=== PATIENT | male | born 1975 | race Two or more races ===

== ENCOUNTER 2020-03-07 15:13 | Emergency (ER) | payer OTHER, SELFPAY ==
[2020-03-07 16:30] VITALS: BP 154/68; PULSE 73; RESP 18; TEMP 36.6; O2SAT 97; BMI 44.1
--- NOTE | 2020-03-07 17:38 | ED.EAR ---
HPI - Ear Problem General Chief complaint: Ear Problems Stated complaint: EAR PAIN Time Seen by Provider: 03/07/20 17:38 History of Present Illness HPI Narrative: Patient complains of mild cough x1 day, right ear pain 2 days and a runny nose times several days, the cough is mild and infrequent, no associated shortness of breath no sputum, no fever no chills Related Data Previous Rx's Medication Instructions Recorded albuterol sulfate [Ventolin HFA] 2 puff INHALATION Q4-6H PRN #6.7 g 03/07/20 cetirizine 10 mg PO DAILY PRN #14 cap 03/07/20 Allergies Allergy/AdvReac Type Severity Reaction Status Date / Time No Known Allergies Allergy Verified 03/07/20 16:34 [No Known Allergies*] Review of Systems Review of Systems: Review of systems is positive for right ear pain, runny nose and mild cough There is no fever no chills no dizziness no confusion no weakness, there is no sore throat there is no chest pain, shortness of breath or sputum production There is no abdominal pain nausea vomiting or diarrhea There is no rash There is no leg swelling or calf pain There is no headache, no urinary symptom Yes all other systems are reviewed and are negative PMFSH Past Medical History Source: nursing notes reviewed Medical History (Updated 03/08/20 @ 00:00 by Background Daemon) HTN (hypertension) Social History Social History Advance Directives: No Advance Directives Information Provided: Yes Physical Exam Vital Signs: Vital Signs: Last Vital Signs Temp 97.8 F 03/07/20 16:30 Pulse 73 03/07/20 16:30 Resp 18 03/07/20 16:30 BP 154/68 H 03/07/20 16:30 Pulse Ox 97 03/07/20 16:30 Body Mass Index 44.1 The patient is calmed comfortable A&O x3 no acute distress the The ear exam both ears had normal tympanic membrane normal canals no redness to the tympanic membrane no narrowing of canal no evidence of ear infection The pharynx is clear with no redness no tonsillar swelling no exudate no impairment of swallowing, uvula is midline no trismus, voice is normal The neck is supple without lymphadenopathy The chest is clear with full equal symmetrical breath sounds The heart rate and rhythm regular no murmur Extremities no edema no rash Neuro no focal deficit Course Course Course Narrative: Year was normal no a tightness media patient is comfortable and is discharged home He requested an albuterol refill as he is out but has no shortness of breath at this moment Discharge Plan Discharge Clinical Impression: Acute viral syndrome Patient Disposition: Home, Self-Care Additional Instructions: The right ear looked normal, the lungs were clear, vital signs were okay We did a COVID swab and the results will be back in 2-3 days The runny nose and mild cough can certainly be COVID symptoms so where mass can be careful around other people Return any time any worse condition or any concerns Prescriptions: New albuterol sulfate [Ventolin HFA] 90 mcg/actuation HFA aerosol inhaler 2 puff inhalation Q4-6H PRN (Reason: shortness of breath or wheezing) Qty: 6.7 RF: 0 cetirizine 10 mg capsule 10 mg PO DAILY PRN (Reason: nasal symptoms) Qty: 14 RF: 0 Stand Alone Forms: Work/School Release Interventions: ED Discharge Assessment Last Done: 03/07/20 18:38 Discharge Date/Time: 03/07/20 18:40
== END 2020-03-07 18:40 | disposition home or self-care (01) ==
PROVIDERS: Physician Assistant Medical; Emergency Provider Internal Medicine
DX: B34.9 Viral infection, unspecified (principal); R05 Cough; H92.03 Otalgia, bilateral; Z20.828 Contact with and (suspected) exposure to other viral communicable diseases; Z79.899 Other long term (current) drug therapy
CPT/HCPCS: 99283; U0003

== ENCOUNTER 2020-05-10 10:26 | Outpatient (REF) | payer OTHER, SELFPAY | END 2020-05-10 10:27 | disposition home or self-care (01) | LOC: HO.LAB 10:26 | PROVIDERS: Visit Provider Internal Medicine | DX: Z20.822 Contact with and (suspected) exposure to COVID-19 (principal) | CPT/HCPCS: 36415; C9803; U0003 ==

== ENCOUNTER 2020-09-24 15:36 | Emergency (ER) | payer MEDICAID, SELFPAY ==
[2020-09-24 16:20] VITALS: BP 156/89; PULSE 86; RESP 16; TEMP 37.1; O2SAT 97; BMI 44.1
--- NOTE | 2020-09-24 16:22 | ED_ITS ---
HPI - Skin/Abscess/Foreign Bdy General Chief complaint: Skin/Abscess/Foreign Body Stated complaint: abscess Time Seen by Provider: 09/24/20 16:12 Source: patient and family ( at bedside) Mode of arrival: ambulatory Limitations: language barrier (Gabonese-speaking) History of Present Illness HPI narrative: 45-year-old male presenting to the ED with complaints of red full/painful lump to the right upper back for the past 3-4 days after he tried to squeeze a pimple that he had there. Denies any other symptoms or complaints at this time. MD complaint: abscess/boil Onset (ago): day(s) (3-4 days worse today) Location: back Severity: moderate Quality: aching Pain Consistency: constant Relieving factors: none Exacerbating factors: none Associated symptoms: denies other symptoms Treatments prior to arrival: attempted to drain pus at home Related Data Previous Rx's Medication Instructions Recorded albuterol sulfate [Ventolin HFA] 2 puff INHALATION Q4-6H PRN #6.7 g 03/07/20 cetirizine 10 mg PO DAILY PRN #14 cap 03/07/20 acetaminophen [Tylenol Extra 1,000 mg PO QID PRN #14 tab 09/24/20 Strength] cephalexin 500 mg PO BID 10 Days #20 cap 09/24/20 doxycycline monohydrate 100 mg PO BID 10 Days #20 cap 09/24/20 ibuprofen 800 mg PO Q8H PRN #14 tab 09/24/20 oxycodone 5 mg PO BID PRN #10 tab 09/24/20 Allergies Allergy/AdvReac Type Severity Reaction Status Date / Time No Known Allergies Allergy Verified 03/07/20 16:34 [No Known Allergies*] Review of Systems Review of Systems: Constitutional : No Fever, No Chills, Cardiovascular : No Chest Pain, No SOB Respiratory : No Dyspnea Gastrointestinal : No abdominal pain Musculoskeletal : No Joint Swelling Skin : positive surrounding erythema, no skin laceration, No Foreign bodies, No rash Neuro : No Weakness, No Numbness/tingling Psych : No SI/HI/thoughts of self injury Yes all other systems are reviewed and are negative PMFSH Past Medical History Attestation statement: The following information was validated with the patient. Medical History Anxiety HTN (hypertension) Social History Social History Advance Directives: No Advance Directives Information Provided: No Physical Exam 2 Vital Signs: Vital Signs: vital signs have been reviewed as normal and appeared to be correct. Blood pressure normal. Heart rate normal. Respiration rate normal. Temperature normal. Oxygen saturation normal. Appearance: Alert. Oriented X3. No acute distress. Head: Normal external exam. Normocephalic. Atraumatic. Eyes: PERRLA. EOMI. Conjunctiva and sclera normal. Eyelids normal. ENT: Pharynx normal. Uvula midline. Moist mucous membranes. Neck: Normal inspection. Neck supple. FROM. No adenopathy. Thyroid Normal. No meningeal signs. No neck mass noted. CVS: Normal heart rate and rhythm. Heart sound normal. Pulses normal throughout. No murmurs/rales/gallops. Respiratory: No respiratory distress. Painless inspiration. Breath sounds normal. No wheezes/rales/rhonchi noted. Chest nontender. No accessory muscle usage noted or decreased air movement noted. Back: Full range of motion noted. No rashes/lesion/induration/fluctuance or signs of infection noted. Skin: To right upper back patient has moderate erythema with induration. No streaking or fluctuance noted. No foreign bodies noted. No drainage noted. The rest of the Skin is warm and dry. Normal skin color. Normal skin turgor. No rashes/lesions/lacerations noted. Extremities: No lower extremity edema. Extremities exhibit normal range of motion. Extremities nontender. Neuro: Oriented X 3. No motor deficit. No sensory deficit. Reflexes normal. Normal steady gait. No focal neuro deficits noted. Course Course Course Narrative: Patient with a cellulitic infection to right upper back not consistent with an abscess at this time. Will DC home with antibiotics and symptomatic treatment instructions to place warm compresses and to follow up if any new or worsening symptoms. Patient understands agrees with this plan. MDM - Skin/Abscess/Foreign Bdy Medical Records Attestation: I reviewed the patient's medical records. Discharge Plan Discharge Clinical Impression: Cellulitis Patient Disposition: Home, Self-Care Instructions: Cellulitis (ED) Prescriptions: New ibuprofen 800 mg tablet 800 mg PO Q8H PRN (Reason: pain) Qty: 14 RF: 0 acetaminophen [Tylenol Extra Strength] 500 mg tablet 1,000 mg PO QID PRN (Reason: fever or pain) Qty: 14 RF: 0 doxycycline monohydrate 100 mg capsule 100 mg PO BID 10 Days Qty: 20 RF: 0 cephalexin 500 mg capsule 500 mg PO BID 10 Days Qty: 20 RF: 0 oxycodone 5 mg tablet 5 mg PO BID PRN (Reason: pain) Qty: 10 RF: 0 No Action albuterol sulfate [Ventolin HFA] 90 mcg/actuation HFA aerosol inhaler 2 puff inhalation Q4-6H PRN (Reason: shortness of breath or wheezing) Qty: 6.7 RF: 0 cetirizine 10 mg capsule 10 mg PO DAILY PRN (Reason: nasal symptoms) Qty: 14 RF: 0 Referrals: [facility] [Primary Care Provider] - 2 days Print Language: Gabonese
== END 2020-09-24 17:07 | disposition home or self-care (01) ==
PROVIDERS: Emergency Provider Emergency Medicine
DX: L03.312 Cellulitis of back [any part except buttock and flank] (principal); M54.5 Low back pain; I10 Essential (primary) hypertension; Z79.899 Other long term (current) drug therapy
CPT/HCPCS: 99283

== ENCOUNTER 2021-01-07 10:52 | Emergency (ER) | payer MEDICAID, SELFPAY ==
--- NOTE | ~2021-01-07 | XR_ITS ---
EXAMINATION: XR CHEST CLINICAL INFORMATION: Shortness of breath, cough, Covid COMPARISON: Chest x-ray on 10/30/2019 TECHNIQUE: Frontal view of the chest was obtained. FINDINGS: Cardiomediastinal silhouette is accentuated by low lung volumes. There are bilateral patchy interstitial opacities. No pleural effusions. Mild bronchial wall thickening. XR/XR chest 1V IMPRESSION: Findings consistent with the clinical history of Covid 19 pneumonia.
[2021-01-07 11:27] VITALS: BP 178/89; PULSE 78; RESP 18; TEMP 36.9; O2SAT 94; BMI 33.2
--- NOTE | 2021-01-07 11:56 | ED.URI ---
HPI - URI/Sore Throat General Chief Complaint: Upper Respiratory Symptoms Stated Complaint: COVID + SOB Time Seen by Provider: 01/07/21 11:33 Source: patient Mode of arrival: ambulatory Limitations: no limitations History of Present Illness HPI Narrative: This is a 45-year-old obese male that presents to the emergency department with a dry nonproductive cough and shortness of breath for 1 week. He states that his daughter tested positive 8 days ago, and he tested positive with an at-home rapid test 7 days ago. He reports increase shortness of breath, particularly with exertion. He also states that has had a fever at home ranging anywhere between 101 degrees F and 102 degrees F. He was last febrile this morning. He denies chest pain, abdominal pain, changes in bowel habits. He is nonsmoker, and past medical history significant for hypertension. He denies past history of asthma and/or COPD. Patient is able to eat and drink, with no complaints. MD elicited complaint: cough (Nonproductive) and other (Shortness of breath on exertion) Onset (ago): day(s) (7) Consistency: intermittent Severity: mild Able to tolerate fluids by mouth: Yes Exacerbating factors: nothing Relieving factors: nothing Context: sick contacts (Daughter was positive for COVID 8 days ago) Associated symptoms: fever, cough and shortness of breath Treatments prior to arrival: none Related Data Previous Rx's Medication Instructions Recorded albuterol sulfate 90 mcg/actuation 2 puff INHALATION Q4-6H PRN #6.7 g 03/07/20 aerosol inhaler (Ventolin HFA) cetirizine 10 mg capsule 10 mg PO DAILY PRN #14 cap 03/07/20 acetaminophen 500 mg tablet 1,000 mg PO QID PRN #14 tab 09/24/20 (Tylenol Extra Strength) cephalexin 500 mg capsule 500 mg PO BID 10 Days #20 cap 09/24/20 doxycycline monohydrate 100 mg 100 mg PO BID 10 Days #20 cap 09/24/20 capsule ibuprofen 800 mg tablet 800 mg PO Q8H PRN #14 tab 09/24/20 oxycodone 5 mg tablet 5 mg PO BID PRN #10 tab 09/24/20 azithromycin 250 mg tablet See Rx Instructions .ROUTE 01/07/21 (Zithromax Z-Antwan) .COMPLEX #6 tab prednisone 50 mg tablet 50 mg PO DAILY #5 tab 01/07/21 Allergies Allergy/AdvReac Type Severity Reaction Status Date / Time No Known Allergies Allergy Verified 03/07/20 16:34 [No Known Allergies*] Review of Systems Review of Systems: Constitutional: + Fever, No Chills ENT/Mouth: No sore throat, No Rhinorrhea, No Swallowing Difficulty Eyes: No Eye Pain, No Swelling, No Redness Cardiovascular: No Chest Pain, + SOB, No Orthopnea, No Edema Respiratory: + Cough, No Sputum, No Wheezing, + dyspnea Gastrointestinal: No Nausea, No Vomiting, No Diarrhea, No abdominal Pain, No Hematochezia, No Melena Genitourinary: No Dysuria, No Urinary Frequency, No Hematuria Musculoskeletal: No joint pain, No Myalgias Skin: No Skin Lesions, No rash Neuro: No Weakness, No Numbness, No Dizziness, No Headache Psych: No Anxiety/Panic, No Depression Heme/Lymph: No Bruising, No Lymphadenopathy Endocrine: No Polyuria, No Polydipsia PMFSH Past Medical History Attestation statement: The following information was validated with the patient. Source: old records reviewed Medical History Anxiety HTN (hypertension) Social History Social History Advance Directives: Yes Advance Directives Information Provided: Yes Advance Directives on File: No Physical Exam Vital Signs: Vital Signs: Last Vital Signs Temp 98.5 F 01/07/21 11:27 Pulse 78 01/07/21 11:27 Resp 18 01/07/21 11:27 BP 178/89 H 01/07/21 11:27 Pulse Ox 94 01/07/21 12:00 Body Mass Index 33.2 Appearance: Alert. Oriented X3. No acute distress. Patient is speaking in full sentences, no use of accessory muscles for breathing. Eyes: Pupils equal, round and reactive to light. ENT: Pharynx normal. Neck: Normal inspection. Neck supple. CVS: Normal heart rate and rhythm. Pulses normal. Respiratory: No respiratory distress. + Diminished breath sounds to bilateral lower lobes. No other adventitious lung sounds noted. Abdomen: Soft and nontender. +BS x4 Skin: Skin warm and dry. Normal skin color. Normal skin turgor. No rashes. Extremities: No lower extremity edema. Neuro: Oriented X 3. No motor deficit. No sensory deficit. Course Course Course Narrative: This is a 45-year-old male who presents from home with complaints of shortness of breath, nonproductive cough for 7 days. He recently tested positive for COVID with an at-home rapid test 7 days ago. His daughter was sick with COVID prior to him testing positive. He reports fevers at home ranging between 101 degrees F 2 102 degrees F. he states that his shortness of breath is only upon exertion. Here in the emergency department he has been saturating 94% on room air, he has no current signs of distress, he is speaking in full sentences and appears comfortable at the bedside. Only past known medical history of hypertension. He denies asthma and/or COPD. He is nonsmoker. Bilateral diminished lung sounds noted. No calf tenderness, or lower extremity edema low concern for PE. A chest x-ray has been ordered based upon findings will decide whether not to treat for a community acquired pneumonia. An ambulatory oxygen saturation has also been ordered. Reevaluation(s) Reevaluation #1: Discussed chest x-ray results with patient. He has been advised to return to the emergency department if he experiences any new, or worsening symptoms. Also recommended for him to get in at home pulse oximeter for him to check his oxygen saturations. Here at the hospital he is saturating 94% on room air. He was also ambulated around the room, and he maintained his oxygen saturation at 94% & he had no respiratory distress. At home if he were to monitor his oxygen saturation, and it dropped below 90%, it is important for him to seek medical attention. He is aware of this plan, he has been educated. He will be sent home on antibiotics as well as prednisone. Time: 12:28 MDM - URI/Sore Throat Imaging Data Chest x-ray: Attestation: I personally reviewed and interpreted this imaging study as follows: Radiologist's impression: FINDINGS: Cardiomediastinal silhouette is accentuated by low lung volumes. There are bilateral patchy interstitial opacities. No pleural effusions. Mild bronchial wall thickening. XR/XR chest 1V IMPRESSION: Findings consistent with the clinical history of Covid 19 pneumonia. ? Discharge Plan Discharge Clinical Impression: Upper respiratory infection, COVID-19 Patient Disposition: Home, Self-Care Instructions: COVID-19 (Coronavirus Disease 2019) (ED) Additional Instructions: You were found to be COVID-19 POSITIVE today. Your chest x-ray COVID-19 pneumonia but your oxygen levels were normal. Rest. Drink plenty of fluids. Do not go out in public for the next 10 days. Take over the counter cold/flu medications as needed for your symptoms. Take Tylenol and/or Motrin as needed for fevers and body aches. Follow up with your doctor this week. Take all your antibiotics as prescribed, it is important you do not miss a dose, and take them to their entirety It is highly recommended for you to get a pulse oximeter at [facility], [facility] or any other [place] to monitor your oxygen saturation. Here in the emergency department he was saturating at 94% on room air, it is important that this is not go below 90%. If you shortness of breath worsens , if you develop difficulty breathing or any other concerning symptom come back to the ER for further evaluation. If you develop new or worsening symptoms call 911 or come back to the ER for further evaluation. Prescriptions: New prednisone 50 mg tablet 50 mg PO DAILY Qty: 5 RF: 0 azithromycin [Zithromax Z-Antwan] 250 mg tablet See Rx Instructions .ROUTE .COMPLEX Qty: 6 RF: 0 No Action albuterol sulfate [Ventolin HFA] 90 mcg/actuation HFA aerosol inhaler 2 puff inhalation Q4-6H PRN (Reason: shortness of breath or wheezing) Qty: 6.7 RF: 0 cetirizine 10 mg capsule 10 mg PO DAILY PRN (Reason: nasal symptoms) Qty: 14 RF: 0 ibuprofen 800 mg tablet 800 mg PO Q8H PRN (Reason: pain) Qty: 14 RF: 0 acetaminophen [Tylenol Extra Strength] 500 mg tablet 1,000 mg PO QID PRN (Reason: fever or pain) Qty: 14 RF: 0 doxycycline monohydrate 100 mg capsule 100 mg PO BID 10 Days Qty: 20 RF: 0 cephalexin 500 mg capsule 500 mg PO BID 10 Days Qty: 20 RF: 0 oxycodone 5 mg tablet 5 mg PO BID PRN (Reason: pain) Qty: 10 RF: 0
[2021-01-07 12:00] VITALS: O2SAT 94
[2021-01-07 12:38] LABS: COVID-19 Test Positive (Negative)
== END 2021-01-07 12:57 | disposition home or self-care (01) ==
PROVIDERS: Physician Assistant; Emergency Provider Emergency Medicine
DX: U07.1 COVID-19 (principal); J06.9 Acute upper respiratory infection, unspecified; Z79.899 Other long term (current) drug therapy
CPT/HCPCS: 36415; 71045; 87635; 99283

== ENCOUNTER → 2021-05-04 13:04 | Outpatient (BNVA) | payer MEDICAID, SELFPAY | PROVIDERS: PCP Internal Medicine; Referring Provider Internal Medicine; Visit Provider Internal Medicine | DX: I10 Essential (primary) hypertension (principal); E66.01 Morbid (severe) obesity due to excess calories; G47.33 Obstructive sleep apnea (adult) (pediatric); Z99.89 Dependence on other enabling machines and devices; Z68.41 Body mass index [BMI] 40.0-44.9, adult | CPT/HCPCS: 93005 ==

== ENCOUNTER → 2021-06-16 08:18 | Outpatient (REF) | payer MEDICAID, SELFPAY ==
--- NOTE | 2021-06-16 08:22 | CA_ITS ---
Transthoracic Echocardiogram Patient (Last, First, Middle): Reji Corley, Gender: Male Date of : 1975 Age: 46 Procedure Date: 06/16/2021 Procedure Type: Transthoracic Echocardiogram Location: OP Height: 172.72 cm Weight: 134.72 kg BSA: 2.42 m2 Heart Rate: bpm BP: 142 / 80 mmHg Lcpc: DEIRDRE Referring MD: Keo Salter MD Symptoms: I10 - Essential (primary) hypertension Study Quality: Fair ECG Rhythm: Sinus Conclusions: - The left ventricular systolic function is normal. The calculated ejection fraction is 63% by biplane method. - There is moderately increased left ventricular wall thickness. - No obvious valvular pathology seen on this study. Findings Left Ventricle Normal left ventricular cavity size. There is moderately increased left ventricular wall thickness. The left ventricular systolic function is normal. The calculated ejection fraction is 63% by biplane method. There is no evidence of regional wall motion abnormalities. Diastolic function is normal for age. Right Ventricle Normal right ventricular cavity size and systolic function. Atria Both atria are normal in size. Aortic Valve There is a normal trileaflet aortic valve. There is no aortic valve stenosis. There is no aortic valve regurgitation. Mitral Valve The mitral valve appears normal. There is mild mitral annular calcification. There is trace mitral valve regurgitation. There is no mitral valve stenosis. Pulmonic Valve The pulmonic valve was not well visualized. Tricuspid Valve There is trace tricuspid valve regurgitation. The pulmonary artery systolic pressure is normal. Great Vessels The aortic annulus, sinuses of valsalva, asc aorta, and aortic arch are normal in size. Venous The inferior vena cava is normal in size and collapses greater than 50% with inspiration. Pericardium/Pleural There is no evidence of pericardial effusion. Prior Study Comparison No significant change compared to prior study dated: 11/10/2019. Recommendations, Care & Conclusions No obvious valvular pathology seen on this study. Measurements 2D Linear Measurements IVSd: 1.30 0.6-0.9/0.6-1.0 cm LVIDd: 4.39 3.9-5.3/4.2-5.9 cm LVIDd Index: 1.81 2.4-3.2/2.2-3.1 cm/m2 LVIDs: 2.28 2.0-3.6 cm LVPWd: 1.36 0.7-1.1 cm Ao Root: 3.60 2.1-3.5 cm LA Diam: 4.70 2.7-3.8/3.0-4.0 cm LAIDs Index: 1.94 1.5-2.3 cm/m2 LV Mass: 276.43 67-162/88-224 g LV Mass Index: 114.23 43-95/49-115 g/m2 LVOT Diam: 2.20 3.0+(-)1.3 cm 2D Systolic Function EF 4C: 64.60 >55% EF 2C: 59.80 >55% EF BiP: 62.80 >55% Mitral Valve MV Pk E: 0.96 MV PK A: 0.79 MV Decel Time: 250.00 E/A: 1.20 E'Lateral: 10.90 E'Medial: 8.27 E/E' Med: 11.60 E/E' Lat: 8.80 PHT: 73.00 MVA PHT: 3.01 Decel [place]: 3.85 Aortic Valve AoV Pk [place]: 1.69 AoV Mn [place]: 1.19 AoV VTI: 0.34 AoV Pk Grad: 11.00 Aov Mn Grad: 6.00 IRIS Cont.VTI: 3.49 LVOT LVOT Pk [place]: 1.51 LVOT Mn [place]: 1.08 LVOT VTI: 0.31 LVOT Pk Grad: 9.00 LVOT Mn Grad: 5.00 LVOT Diam: 2.20 LVOT Area: 3.80 Diastolic Function MV Pk E: 0.96 MV Pk A: 0.79 E/A: 1.20 E'Medial: 8.27 E/E' Med: 11.60 E' Laterial: 10.90 E/E' Lat: 8.80 Right Ventricle TAPSE (mm): 23.90 TVS' [place]: 12.30 Tricuspid Valve TR Pk [place]: 1.48 TR Pk Grad: 9.00 RA Press: 8.00 RVSP: 17.00 Great Vessels Aorta Ao Root-2D: 3.60 2.0-3.7 cm Ao Asc: 3.30 2.1-3.4 cm Ao Arch: 3.00 Updated in Other Vendor System with Status of Final Keo Salter MD electronically signed on 06/18/2021 12:31:55 PM with status of Final
== END ==
LOC: HO.CARD 08:18
PROVIDERS: PCP Internal Medicine; Visit Provider Internal Medicine
DX: I10 Essential (primary) hypertension (principal)
CPT/HCPCS: 93306

== ENCOUNTER → 2021-06-20 14:54 | Outpatient (BNVA) | payer MEDICAID, SELFPAY | PROVIDERS: PCP Internal Medicine; Referring Provider Internal Medicine; Visit Provider Nurse Practitioner Family | DX: G47.33 Obstructive sleep apnea (adult) (pediatric) (principal); E66.01 Morbid (severe) obesity due to excess calories; Z68.42 Body mass index [BMI] 45.0-49.9, adult; I10 Essential (primary) hypertension; Z99.89 Dependence on other enabling machines and devices | CPT/HCPCS: 99202 ==

== ENCOUNTER → 2021-06-21 13:19 | Outpatient (BNVA) | payer MEDICAID, SELFPAY | PROVIDERS: PCP Internal Medicine; Referring Provider Internal Medicine; Visit Provider Nurse Practitioner Family | DX: I51.7 Cardiomegaly (principal); I10 Essential (primary) hypertension; E66.01 Morbid (severe) obesity due to excess calories; G47.33 Obstructive sleep apnea (adult) (pediatric); Z99.89 Dependence on other enabling machines and devices; Z68.42 Body mass index [BMI] 45.0-49.9, adult | CPT/HCPCS: 99212 ==

== ENCOUNTER → 2021-07-04 09:48 | Outpatient (BNVA) | payer MEDICAID, SELFPAY | PROVIDERS: PCP Internal Medicine; Referring Provider Internal Medicine; Visit Provider Nurse Practitioner Family | DX: Z13.89 Encounter for screening for other disorder (principal) ==

== ENCOUNTER 2021-09-29 12:55 | Emergency (ER) | payer OTHER, MEDICAID, SELFPAY ==
[2021-09-29 13:04] VITALS: BP 153/82; PULSE 77; RESP 18; TEMP 36.9; O2SAT 97; BMI 44.1
[2021-09-29] MEDS: Ketorolac Tromethamine 30 MG/ML VIAL IM (14:50)
--- NOTE | 2021-09-29 15:57 | ED.BACK ---
HPI - Back Pain/Injury General Chief Complaint: Back Pain/Injury Stated Complaint: lower back inj with tire at work Time Seen by Provider: 09/29/21 14:30 Source: patient Mode of arrival: ambulatory Limitations: language barrier History of Present Illness HPI Narrative: 46-year-old male presents with right low back pain after lifting a heavy tire at work. Patient was removing a room from a very large and heavy tire, when he lifted the tire up and felt sudden back pain in his left lower back. It is now painful to straighten up. No radiation into his legs, no prior back surgery, no chronic back pain. No fever, no bilateral leg weakness, no saddle paresthesias, no bowel or bladder incontinence, no bladder retention, no history of IV drug use, no history of cancer. No numbness, syncope, abdominal pain, nausea, vomiting MD elicited complaint: back pain Pertinent past history: recent trauma Onset (ago): hour(s) (1) Timing: constant Severity: moderate Similar Symptoms Previously: No Quality: stabbing Location: right lower back Radiation: none Exacerbating factors: movement Context: while lifting Associated symptoms: denies other symptoms Related Data Home Medications Medication Instructions Recorded Confirmed buspirone 10 mg tablet 10 mg PO TID 05/04/21 06/21/21 lorazepam 0.5 mg tablet 0.5 mg PO DAILY PRN 05/04/21 06/21/21 Previous Rx's Medication Instructions Recorded metoprolol tartrate 50 mg tablet 50 mg PO BID #180 tabs 05/04/21 amlodipine 10 mg tablet 10 mg PO DAILY #90 tabs 06/21/21 valsartan 80 mg tablet 80 mg PO DAILY #30 tabs 07/04/21 cyclobenzaprine 5 mg tablet 5 mg PO TID 5 days #15 tabs 09/29/21 ketorolac 10 mg tablet 10 mg PO QID 5 days #20 tabs 09/29/21 Allergies Allergy/AdvReac Type Severity Reaction Status Date / Time No Known Allergies Allergy Verified 06/21/21 13:21 [No Known Allergies*] Review of Systems Constitutional: Constitutional: Denies body ache(s), Denies chills, Denies fatigue, Denies fever(s), Denies malaise and Denies weakness Eyes: Eyes: Denies blurry vision and Denies diplopia ENT: Denies neck pain Cardiovascular: Cardiovascular: Denies chest pain, Denies syncope, Denies leg edema, Denies lightheadedness, Denies Loss of Consciousness, Denies palpitations and Denies dyspnea Respiratory: Respiratory: Denies chest congestion, Denies cough and Denies dyspnea Gastrointestinal: Gastrointestinal: Denies abdominal pain, Denies hematochezia, Denies constipation, Denies diarrhea, Denies nausea and Denies vomiting Musculoskeletal: Musculoskeletal: Reports back pain, Denies muscle weakness, Denies neck pain and Denies radiating pain into limb Neurologic: Denies confusion, Denies syncope and Denies weakness Psychiatric: Psychiatric: Denies anxiety, Denies confusion and Denies depression Endocrine: Endocrine: Denies fatigue and Denies palpitations PMFSH Past Medical History Medical History Anxiety Essential hypertension HTN (hypertension) MADINA on CPAP Surgical History No pertinent past surgical history Family History Family History Father Heart disease Hypertension Mother No problems noted. Social History Social History Patient Tobacco Use Status: Never used Tobacco Advance Directives: No Advance Directives Information Provided: No Physical Exam Vital Signs: Vital Signs: Last Vital Signs Temp 98.4 F 09/29/21 13:04 Pulse 77 09/29/21 13:04 Resp 18 09/29/21 13:04 BP 153/82 H 09/29/21 13:04 Pulse Ox 97 09/29/21 13:04 O2 Del Method 09/29/21 13:04 BMI result Body Mass Index 44.1 Const: General: No confusion Nutritional Appearance: well nourished Orientation/consciousness: No confusion Limitations: no limitations Eyes: Conjunctivae: conjunctivae normal Pupils: Equal, round and reactive pupils present EOM: EOMs intact bilaterally Neck: Neck: Yes full ROM, Yes no lymphadenopathy and Yes supple Resp: Effort & Inspection: normal respiratory effort and able to speak in complete sentences Auscultation: clear to auscultation bilaterally, no crackles, no rales, no rhonchi and no wheezes Cardio: Rate: regular rate Rhythm: regular rhythm Heart sounds: S1 normal heart sound present and S2 normal heart sound present GI: Inspection: Yes normal to inspection Palpation (GI): Soft to palpation, nontender, no guarding and not rigid Percussion: Yes normal to percussion Auscultation: normal bowel sounds : General: Yes no CVA tenderness Back/Spine/Pelvis: Back: no CVA tenderness Cervical Spine: normal cervical lordosis, cervical ROM normal, No Cervical spine tenderness, No step off deformity and No cervical ROM abnormal Thoracic/Lumbar Spine: straight leg raise negative bilaterally, thoraco-lumbar spasm on the right, No thoracic spinal tenderness and No lumbar spinal tenderness Skin: General skin exam: no rashes or lesions noted Neuro: General: No confusion Cranial nerves: Yes Equal, round and reactive pupils present Extrem: General: Yes normal to inspection and Yes full ROM Psych: Appearance: grossly normal Affect: normal affect Attitude: cooperative Thought process: Normal thought process present Course Course Course Narrative: 46-year-old with right-sided low back pain after lifting a heavy tire at work just prior to arrival. On exam, patient has normal vitals, is well appearing, no red flag symptoms. Patient has no vertebral point tenderness, has intact bilateral lower extremity sensation, motor strength, pulses, DTRs. Patient is tender to help in his right lateral soft tissue of his low back muscle treated with ketorolac and Flexeril, send patient home on same. Counseled patient to follow-up with his primary care provider. Gave return precautions of fever, leg weakness, numbness or tingling in his groin, incontinent of bowel or bladder, urinary retention. Patient verbalized agreement and understanding of the plan Discharge Plan Discharge Clinical Impression: Acute lumbar myofascial strain Patient Disposition: Home, Self-Care Instructions: Acute Low Back Pain (ED), Lower Back Exercises (ED) Additional Instructions: please fill the prescriptions I sent to your pharmacy and take them as prescribed. Please do not take any ibuprofen containing products while you are taking the ketorolac. Please return to be seen if you have sudden leg weakness, if you have bowel or bladder incontinence, if you have numbness or tingling in your groin, if you have any other new or concerning symptoms por favor surta las recetas que le envi? a goff farmacia y t?melas seg?n lo recetado. No tome lois?n producto que contenga ibuprofeno mientras est? tomando ketorolaco. Vuelva a que lo atiendan si tiene debilidad repentina en las piernas, si tiene incontinencia intestinal o vesical, si tiene entumecimiento u hormigueo en la elva, si tiene otros s?ntomas nuevos o preocupantes. Prescriptions: New cyclobenzaprine 5 mg tablet 5 mg PO TID 5 Days Qty: 15 0RF ketorolac 10 mg tablet 10 mg PO QID 5 Days Qty: 20 0RF No Action valsartan 80 mg tablet 80 mg PO DAILY Qty: 30 5RF lorazepam 0.5 mg tablet 0.5 mg PO DAILY PRN buspirone 10 mg tablet 10 mg PO TID metoprolol tartrate 50 mg tablet 50 mg PO BID Qty: 180 3RF amlodipine 10 mg tablet 10 mg PO DAILY Qty: 90 1RF Stand Alone Forms: Work/School Release Interventions: ED Discharge Assessment Last Done: 09/29/21 14:56 Discharge Date/Time: 09/29/21 14:57 Print Language: Belarusian
== END 2021-09-29 14:57 | disposition home or self-care (01) ==
PROVIDERS: Emergency Provider Emergency Medicine; PCP Internal Medicine
DX: S39.012A Strain of muscle, fascia and tendon of lower back, initial encounter (principal); I10 Essential (primary) hypertension; G47.33 Obstructive sleep apnea (adult) (pediatric); Z99.89 Dependence on other enabling machines and devices; X50.0XXA Overexertion from strenuous movement or load, initial encounter; Y93.9 Activity, unspecified; Y92.9 Unspecified place or not applicable; Y99.0 Civilian activity done for income or pay
CPT/HCPCS: 96372; 99283; 99284; J1885

== ENCOUNTER → 2022-03-01 08:52 | Outpatient (BNVA) | payer MEDICAID, OTHER, SELFPAY | PROVIDERS: PCP Internal Medicine; Visit Provider Internal Medicine | DX: I10 Essential (primary) hypertension (principal); G47.33 Obstructive sleep apnea (adult) (pediatric); E66.01 Morbid (severe) obesity due to excess calories; Z99.89 Dependence on other enabling machines and devices; Z68.41 Body mass index [BMI] 40.0-44.9, adult | CPT/HCPCS: 99212 ==

== ENCOUNTER 2022-05-22 15:08 | Outpatient (REF) | payer MEDICAID, SELFPAY ==
--- NOTE | ~2022-05-22 | XR_ITS ---
EXAMINATION: XR LUMBOSACRAL SPINE CLINICAL INFORMATION: Low back pain. COMPARISON: None TECHNIQUE: Three views of the lumbosacral spine. FINDINGS: There is normal lumbar lordosis. The vertebral heights and alignment is normal. There is loss of L5-S1 disc height with mild ventral spondylosis at L5-S1 and T12-L1 disc levels. No aggressive lytic or sclerotic process seen. The SI joints are symmetrical and normal. The paravertebral soft tissues are normal. XR/XR lumbar spine 2-3V IMPRESSION: Mild degenerative disc changes L5-S1 and T12-L1 disc levels with mild ventral spondylosis. No aggressive lytic and sclerotic process seen.
== END 2022-05-22 15:09 | disposition home or self-care (01) ==
LOC: HO.XRAY 15:08
PROVIDERS: Visit Provider Registered Nurse
DX: M54.50 Low back pain, unspecified (principal); M79.604 Pain in right leg
CPT/HCPCS: 72100

== ENCOUNTER 2022-05-30 14:47 | Outpatient (RCR) | payer MEDICAID, SELFPAY ==
[2022-05-30 15:02] VITALS: BP 169/82
--- NOTE | 2022-05-31 13:37 | MHC.PT.EP ---
[facility] [place] [facility] [place] [facility] [place] [facility] [address] Aaron Alegria [address] [phone] F: [phone] F: [phone] F: [phone] F: [phone] Physical Therapy Plan of Care Date of Evaluation: Date of Surgery: N/A Diagnosis: lumbar strain, initial encounter Sciatica of right side Assessment: Pt is a pleasant 47yo M who presents to PT with lumbar strain and sciatica on R side for ~1 month. He presents to PT with current impairments in pain, decreased lumbar ROM, decreased muscle length, decreased core stabilization, decreased hip/glute strength, soft tissue restrictions, impaired posture and impaired body mechanics. He is TTP throughout R lumbar PS, R glutes and R piriformis. He is limited functionally by bending, lifting, prolonged sitting, prolonged standing, prolonged walking, and sleeping. He is an excellent candidate for skilled PT in order to address current impairments to facilitate return to PLOF. He is recommended to be seen 2x/week for 4 weeks and will be reassessed at that time. 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 Manual therapy to restore motion and function. Therapeutic exercise to improve strength and flexibility. Neuromuscular re-education for posture and balance. Therapeutic activities to return to functional activities of daily living. Electronically signed by: April Braun, PT, DPT Please sign and return to therapist. Thank you for your referral.
--- NOTE | 2022-06-29 12:45 | MHC.PT.DC ---
[facility] [place] Office [place] Office [place] Office [address] Aaron Alegria [address] [phone] F: [phone] F: [phone] F: [phone] F: [phone] Physical Therapy Discharge Report Diagnosis: lumbar strain, initial encounter Sciatica of right side Date of Surgery: N/A Date of Evaluation: 05/30/22 Date of Discharge: 06/29/22 Treatments to Date: 1 Cancellations to Date: 1 No Shows to Date: 2 Discharge Status: Visit Non-compliance Discharge Summary: Pt was evaluated for PT on 05/30/22. He had 1 cancellation and 2 no-show appointments since initial PT evaluation. Pt is being D/C from skilled PT per [facility] [place] policy and visit non-compliance. Pt current level of function unknown at this time. Electronically signed by: April Braun, PT, DPT Please sign and return to therapist. Thank you for your referral.
== END 2022-06-29 12:45 | disposition home or self-care (01) ==
LOC: HO.PT 14:47
PROVIDERS: PCP Internal Medicine; Visit Provider Internal Medicine
DX: S39.012A Strain of muscle, fascia and tendon of lower back, initial encounter (principal); M54.31 Sciatica, right side
CPT/HCPCS: 97162

== ENCOUNTER 2022-12-05 15:04 | Outpatient (REF) | payer MEDICAID, SELFPAY ==
[2022-12-07 12:23] LABS: TS Negative Control Passed; TS Panel A 0; TS Panel B 0; TS Positive Control Passed; TSpotTB Negative (Negative)
== END 2022-12-05 15:05 | disposition home or self-care (01) ==
LOC: HO.HHCL 15:04
PROVIDERS: Visit Provider Nurse Practitioner Primary Care
DX: Z00.00 Encounter for general adult medical examination without abnormal findings (principal)
CPT/HCPCS: 36415; 86481

== ENCOUNTER 2023-02-20 09:51 | Outpatient (REF) | payer MEDICAID, SELFPAY ==
--- NOTE | 2023-02-20 | EMG_ITS ---
Please see scanned EMG / Nerve Conduction Report. MTDD
== END 2023-02-20 09:52 | disposition home or self-care (01) ==
LOC: HO.NEURO 09:51
PROVIDERS: PCP Internal Medicine; Visit Provider Nurse Practitioner Primary Care
DX: R20.0 Anesthesia of skin (principal)
CPT/HCPCS: 95885; 95913

== ENCOUNTER 2023-03-22 11:01 | Outpatient (AMB) | payer MEDICAID, SELFPAY ==
--- NOTE | 2023-03-22 11:09 | MHC.OFFVIS ---
Intake Vital Signs 03/22/23 11:17 BP 130/80 Blood Pressure Location Rt brachial Pulse 67 Pulse Source Pulse Oximeter Pulse Oximetry (%) 98 Oxygen Delivery Method Room Air Intake Visit Reasons: Follow Up- MADINA/ Confirmed Allergies No Known Allergies [No Known Allergies*] Allergy (Verified 03/22/23 11:19) HPI HPI Comments History of Present Illness Details 47-yr-old male presents for follow-up visit. Pt denies any significant interval medical history changes. Pt reports he is complaint w/ his CPAP. He sleeps well w/ PAP usage and wakes up refreshed. He is still unsure of his PAP settings. His machine is > 5 yrs old, sometimes the pressure is not as strong, and no longer transmits compliance data. He has had 1 epsiode of sleeping on his side and waking up with a right cheek spasms. It self-resolved. He denies usual bruxism. [facility] Medical History MADINA on CPAP Essential hypertension Anxiety HTN (hypertension) Surgical History No pertinent past surgical history Family History Father Heart disease Hypertension Mother No problems noted. Social History (Updated 03/22/23 @ 11:20 by Agatha Duron) Alcohol intake: never Patient Tobacco Use Status: Never used Tobacco Review of Systems Const All systems reviewed & are unremarkable except as noted in HPI and below Physical Exam Vital Signs: Last Vital Signs Pulse 67 03/22/23 11:17 BP 130/80 03/22/23 11:17 Pulse Ox 98 03/22/23 11:17 Oxygen Delivery Method Room Air 03/22/23 11:17 Const General: no acute distress Orientation/consciousness: patient oriented x3 HEENT Head: Yes normocephalic Resp Effort & Inspection: normal respiratory effort and able to speak in complete sentences Auscultation: clear to auscultation bilaterally Cardio Rate: regular rate Rhythm: regular rhythm Neuro General: patient oriented x3 Psych Mental Status: mental status grossly normal Speech and movement: Clear speech present Attitude: cooperative Results Reviewed Results Reviewed: PAP compliance report- see HPI Assessment & Plan Assessment & Plan (1) MADINA on CPAP: Code(s): G47.33 - Obstructive sleep apnea (adult) (pediatric); Z99.89 - Dependence on other enabling machines and devices (2) Morbid obesity: Code(s): E66.01 - Morbid (severe) obesity due to excess calories (3) Essential hypertension: Code(s): I10 - Essential (primary) hypertension (4) LVH (left ventricular hypertrophy): Code(s): I51.7 - Cardiomegaly Plan Continue CPAP, as patient is experiencing good clinical effect from use. Will again request sleep study reports from the [facility]. Will order new CPAP w/ remote compliance monitoring capabilities through [facility]. f/u in 1 yr or sooner prn. Coding Level of Care Code Est Pt Level 3 (98872) Diagnoses MADINA on CPAP G47.33; Z99.89 Morbid obesity E66.01 Essential hypertension I10 LVH (left ventricular hypertrophy) I51.7
[2023-03-22 11:17] VITALS: BP 130/80; PULSE 67; O2SAT 98
== END 2023-03-22 11:34 | disposition home or self-care (01) ==
LOC: HO.HSMS 11:01
PROVIDERS: PCP Internal Medicine; Visit Provider Nurse Practitioner Family
DX: G47.33 Obstructive sleep apnea (adult) (pediatric) (principal); Z99.89 Dependence on other enabling machines and devices; E66.01 Morbid (severe) obesity due to excess calories; I10 Essential (primary) hypertension; I51.7 Cardiomegaly
CPT/HCPCS: 99213

== ENCOUNTER → 2023-03-22 11:01 | Outpatient (BNVA) | payer MEDICAID, SELFPAY | PROVIDERS: PCP Internal Medicine; Visit Provider Nurse Practitioner Family | DX: G47.33 Obstructive sleep apnea (adult) (pediatric) (principal); E66.01 Morbid (severe) obesity due to excess calories; I10 Essential (primary) hypertension; I51.7 Cardiomegaly; Z99.89 Dependence on other enabling machines and devices | CPT/HCPCS: 99212 ==

== ENCOUNTER 2023-11-29 14:09 | Outpatient (REF) | payer MEDICAID, SELFPAY ==
[2023-11-29 16:31] LABS: Anion Gap 11 (12-20); Blood Urea Nitrogen 11 mg/dL (9-16); Calcium 9.5 mg/dL (8.4-10.2); Carbon Dioxide 28 mmol/L (22-29); Chloride 108 mmol/L (96-108); Estimated Glomerular Filt Rate > 60; Glucose Random 74 mg/dL (60-115); Sodium 143 mmol/L (135-145)
[2023-11-29 16:56] LABS: Microalbum/Creatinine Ratio Ur 9.4 ug/mg cr (<30)
[2023-12-02 18:09] LABS: Rubella IgG Antibody <0.90 Index
== END 2023-11-29 14:10 | disposition home or self-care (01) ==
LOC: HO.HHCL 14:09
PROVIDERS: Visit Provider Nurse Practitioner Primary Care
DX: I10 Essential (primary) hypertension (principal); Z01.84 Encounter for antibody response examination
CPT/HCPCS: 36415; 80048; 82043; 82570; 86735; 86762; 86765

== ENCOUNTER 2024-03-16 09:13 | Outpatient (AMB) | payer MEDICAID, SELFPAY ==
--- NOTE | 2024-03-16 09:16 | MHC.OFFVIS ---
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 Pt denies any significant interval medical history changes. Pt reports he is complaint w/ his CPAP. He sleeps 8-9 hrs per night. States he sleeps well w/ PAP usage and wakes up refreshed. His machine was not replaced, but it is working well and is now transmitting compliance data. He does clean his supplies regularly. Uses distilled water. States he is need of filters and new tubing. [facility] Initial set-up 02/04/2017 Compliance Report 02/15/2024 - 03/15/2024 Usage days 30/30 days (100%) >= 4 hours 30 days (100%) < 4 hours 0 days (0%) Average usage (days used) 9 hours 42 minutes AirSense 10 AutoSet Serial number [id number] Mode CPAP Set pressure 14 cmH2O EPR Fulltime EPR level 3 Therapy Leaks - L/min Median: 0.2 95th percentile: 26.4 Maximum: 114.2 Events per hour AI: 0.6 HI: 0.5 AHI: 1.1 PFSH Medical History MADINA on CPAP Essential hypertension Anxiety HTN (hypertension) Surgical History No pertinent past surgical history Family History Father Heart disease Hypertension Mother No problems noted. Social History Alcohol intake: never Patient Tobacco Use Status: Never used Tobacco Physical Exam Vital Signs: Last Vital Signs Pulse 77 03/16/24 09:20 BP 160/90 H 03/16/24 09:20 Pulse Ox 95 03/16/24 09:20 Oxygen Delivery Method Room Air 03/16/24 09:20 BMI result Body Mass Index 48.4 Const General: no acute distress Orientation/consciousness: patient oriented x3 HEENT Head: Yes normocephalic Resp Effort & Inspection: normal respiratory effort and able to speak in complete sentences Auscultation: clear to auscultation bilaterally Cardio Rate: regular rate Rhythm: regular rhythm Neuro General: patient oriented x3 Psych Mental Status: mental status grossly normal Speech and movement: Clear speech present Attitude: cooperative Assessment & Plan Assessment & Plan (1) MADINA on CPAP: Code(s): G47.33 - Obstructive sleep apnea (adult) (pediatric); Z99.89 - Dependence on other enabling machines and devices Category: Medical (2) Morbid obesity: Code(s): E66.01 - Morbid (severe) obesity due to excess calories Category: Medical Plan Continue CPAP 14 cmH2O w/ EPR 3 nightly > 4 hrs, as patient is experiencing good clinical effect from use. Pt's device is working well and is now transmitting compliance data- will hold on previous device replacement request. Continue to change and clean CPAP supplies routinely. Uses distilled water in humidification chamber. Will request new CPAP supplies- as pt reports he needs new tubing and filters especially. f/u in 1 yr or sooner prn. Coding Level of Care Code Est Pt Level 3 (75713) Diagnoses MADINA on CPAP G47.33; Z99.89 Morbid obesity E66.01
[2024-03-16 09:20] VITALS: BP 160/90; PULSE 77; O2SAT 95; BMI 48.4
== END 2024-03-16 10:09 | disposition home or self-care (01) ==
PROVIDERS: PCP Internal Medicine; Visit Provider Nurse Practitioner Family
DX: G47.33 Obstructive sleep apnea (adult) (pediatric) (principal); Z99.89 Dependence on other enabling machines and devices; E66.01 Morbid (severe) obesity due to excess calories
CPT/HCPCS: 99213

== ENCOUNTER → 2024-03-16 09:13 | Outpatient (BNVA) | payer MEDICAID, SELFPAY | PROVIDERS: PCP Internal Medicine; Visit Provider Nurse Practitioner Family | DX: G47.33 Obstructive sleep apnea (adult) (pediatric) (principal); E66.01 Morbid (severe) obesity due to excess calories; Z99.89 Dependence on other enabling machines and devices; Z68.42 Body mass index [BMI] 45.0-49.9, adult | CPT/HCPCS: 99212 ==

== ENCOUNTER 2024-04-01 11:37 | Outpatient (REF) | payer MEDICAID, SELFPAY ==
[2024-04-01 14:09] LABS: TSH reflex Free T4 2.55 uIU/mL (0.32-4.0); Vitamin D 25-OH Total 39.4 ng/mL (>30)
[2024-04-01 14:13] LABS: Vitamin B12 454 pg/mL (200-900)
[2024-04-02 08:16] LABS: HBS Num1 0.06 mIU/mL (0-7.99); HBc Num1 0.12 S/CO (0.00-0.79); HBsAGNum1 0.57 S/CO (0.00-0.99); HIV AB/AG Nonreactive (Nonreactive); HIV Num 1 0.06 S/CO (0.00-0.99); Hepatitis B Core Antibody Nonreactive (Nonreactive); Hepatitis B Surface Antigen Negative (Negative); ~HepC Num1 0.15 S/CO (0.00-0.79); ~Hepatitis B Surface Antibody NONREACTIVE (Nonreactive); ~Hepatitis C Antibody Nonreactive (Nonreactive)
[2024-04-02 08:36] LABS: Adenovirus PCR Not Detected (Not Detect.); Bordetella parapertussis PCR Not Detected (Not Detect.); Bordetella pertussis PCR Not Detected (Not Detect.); Chlamydia pneumoniae PCR Not Detected (Not Detect.); Coronavirus 229E PCR Not Detected (Not Detect.); Coronavirus HKU1 PCR Not Detected (Not Detect.); Coronavirus NL63 PCR Not Detected (Not Detect.); Coronavirus OC43 PCR Not Detected (Not Detect.); Human metapneumovirus PCR Not Detected (Not Detect.); Influenza A PCR Not Detected (Not Detect.); Influenza B PCR Not Detected (Not Detect.); Mycoplasma pneumoniae PCR Not Detected (Not Detect.); Parainfluenza 1 PCR Not Detected (Not Detect.); Parainfluenza 2 PCR Not Detected (Not Detect.); Parainfluenza 3 PCR Not Detected (Not Detect.); Parainfluenza 4 PCR Not Detected (Not Detect.); RSV PCR Not Detected (Not Detect.); Rhino/Enterovirus PCR Not Detected (Not Detect.)
[2024-04-02 09:01] LABS: SARS-CoV-2 PCR Not Detected (Not Detect.)
== END 2024-04-01 11:38 | disposition home or self-care (01) ==
LOC: HO.HHCL 11:37
PROVIDERS: Visit Provider Emergency Medicine
DX: R53.1 Weakness (principal); J45.21 Mild intermittent asthma with (acute) exacerbation
CPT/HCPCS: 36415; 82306; 82607; 84443; 86704; 86706; 86803; 87340; 87389; 87633

== ENCOUNTER 2024-08-31 09:38 | Outpatient (AMB) | payer MEDICAID, SELFPAY ==
--- NOTE | 2024-08-31 09:42 | A.OFFVIS_ITS ---
Vital Signs 08/31/24 09:43 Height 5 ft 8 in Weight 313 lb 0.902 oz BMI 47.6 BP 140/80 H Blood Pressure Location Lt brachial Position Sitting Pulse 62 Pulse Source Monitor Intake Visit Reasons: Essential hypertension Clamp Remover Required: Yes Clamp Remover Name: VASYL [id number] Allergies No Known Allergies [No Known Allergies*] Allergy (Verified 03/16/24 09:19) Medication List - Last Reconciled 08/31/24 by Keo Salter MD metoprolol tartrate 50 mg PO BID olmesartan 40 mg PO DAILY HPI Comments Details: The patient is a 49-year-old male presenting with Essential Hypertension, reporting variability in his blood pressure. The patient mentioned a recent reading at 140/unknown, with past spikes up to 180/95/98, and during panic episodes, reaching 200/unknown. These issues are compounded by Anxiety Disorder and Panic Attacks, with the patient reporting palpitations shortly after taking his prescribed medications, Metoprolol and Olmesartan. Historical treatment with Amlodipine resulted in adverse effects, leading to swelling. Previous examinations in [place] have documented a history of arrhythmia. Anxiety during medical consultations further elevates his blood pressure. [facility] Medical History (Updated 08/31/24 @ 10:08 by Keo Salter MD) PAF (paroxysmal atrial fibrillation) MADINA on CPAP Essential hypertension Anxiety HTN (hypertension) Surgical History No pertinent past surgical history Family History Father Heart disease Hypertension Mother No problems noted. Social History Alcohol intake: never Patient Tobacco Use Status: Never used Tobacco Review of Systems Const Denies weakness ENT Denies dizziness Card Denies chest pain, Denies chest pain with activity, Denies syncope, Denies rapid heart rate, Denies pedal edema, Denies edema, Denies leg edema, Denies lightheadedness, Denies palpitations, Denies dyspnea, Denies dyspnea on exertion and Denies orthopnea Resp Denies cough, Denies dyspnea and Denies dyspnea on exertion GI Denies hematochezia and Denies change in stool character Musc Denies abnormal gait, Denies muscle cramps, Denies muscle weakness, Denies numbness, Denies radiating pain into limb and Denies tingling Neuro Denies abnormal gait, Denies dizziness, Denies syncope, Denies numbness, Denies tingling and Denies weakness Endo Denies palpitations Physical Exam Vital Signs: Last Vital Signs Pulse 62 08/31/24 09:43 BP 140/80 H 08/31/24 09:43 BMI result Body Mass Index 47.6 Const General: comfortable and no acute distress Orientation/consciousness: patient oriented x3 HEENT Other: Unremarkable Head: Yes normal to inspection Neck Neck: Yes normal visual inspection Chest Chest palpation & inspection: normal inspection of the chest Resp Auscultation: clear to auscultation bilaterally Cardio Palpation: normal PMI Heart sounds: S1 normal heart sound present, S2 normal heart sound present, no gallops, no murmurs and no rubs GI Palpation (GI): Soft to palpation Back/Spine/Pelvis Other: unremarkable Skin General skin exam: no rashes or lesions noted Neuro General: patient oriented x3 Extrem General: Yes normal to inspection Psych Mental Status: mental status grossly normal Office Procedures EKG Details: EKG with sinus rhythm at 62/Min; no significant ST-T changes and otherwise unremarkable[place]. [id number], Complete Assessment & Plan Assessment & Plan (1) Essential hypertension: Code(s): I10 - Essential (primary) hypertension Category: Medical Plan: Several med changes over time. Currently on metoprolol and Olmesartan. At different times, he has been on medications including amlodipine, nifedipine, valsartan, lisinopril. Seems, with amlodipine he had leg swelling. With lisinopril, there is a question of sexual dysfunction. With other medications, not clear what was issue. No further changes today. To consolidate changes with PCP to avoid any confu kaitlin. (2) PAF (paroxysmal atrial fibrillation): Code(s): I48.0 - Paroxysmal atrial fibrillation Category: Medical Plan: Mentioned in [facility] visit note from few years ago. Apparently, happened in 2016. No recurrent issues. Beta-blockers should suffice. As he is describing some vague palpitations after taking blood pressure medications, check Holter. (3) MADINA on CPAP: Code(s): G47.33 - Obstructive sleep apnea (adult) (pediatric); Z99.89 - Dependence on other enabling machines and devices Category: Medical Plan: Continue CPAP. (4) Morbid obesity: Code(s): E66.01 - Morbid (severe) obesity due to excess calories Category: Medical Plan: Weight loss will help immensely. Discussed today. Plan Discussion Notes During this visit, I reviewed the plan to implement a heart monitor for arrhythmia detection, explained the necessity to continue Metoprolol and Olmesartan for hypertension management. The risks and benefits of these medications, along with the heart monitor, have been detailed. Assurances were given that the monitor does not necessitate hospital admission and can be worn during normal daily activities. Discussions emphasized the hopeful effect of weight management on overall blood pressure levels. Additionally, utilization of the patient's CPAP machine was acknowledged as potentially beneficial. The importance of a follow-up with the patient?s primary medical provider was underlined to better integrate hypertension and anxiety management strategies. Patient was informed and verbally consented to the use of an ambient scribe for clinic note documentation during this visit. Orders: Orders ECG 7 day holter monitor Today R00.2 - Palpitations Patient Instructions: - Wear the heart monitor as instructed to help detect any heart irregularities. - Continue taking Metoprolol and Olmesartan as prescribed for blood pressure. - Try to manage your weight as suggested, which might help in controlling your blood pressure. - Use your CPAP machine consistently if you own one. - Follow up with your primary healthcare provider regularly. - Report any unusual symptoms or side effects to your doctor. - Stay calm during doctor visits to help manage your blood pressure. Coding Level of Care Code Est Pt Level 4 (54444) Complex EM visit Add On G2211 Diagnoses Essential hypertension I10 PAF (paroxysmal atrial fibrillation) I48.0 MADINA on CPAP G47.33; Z99.89 Morbid obesity E66.01 CPT Codes EKG - CPT: 10661-[id number], Complete ([id number])
[2024-08-31 09:43] VITALS: BP 140/80; PULSE 62; BMI 47.6
--- OUTSIDE RECORDS SUMMARY | 2024-08-31 09:55 | XMS_ITS | Encounter Summary ---
Author Organization [employer] Address [address] [place] [address] [address] [place] [address] Care Team Providers Care Channel Marketing Manager Name Role Phone Yari Laughlin Primary Care Provider [phone] [place] Unavailable Unavailable Reason for Visit * Reason Onset Date Comments Med Refill 07/28/2024 Encounter Details Date Type Department Care Team ([facility] st Contact Info) Description 07/28/2024 Telephone [facility] MEDICINE [address] [place] [address] Yari Laughlin ANP [address] [place] [address] Med Refill Social History Tobacco Use Types Packs/Day Years Used Date Smoking Tobacco: Never Passive Smoke Exposure: Never Smokeless Tobacco: Never Alcohol Use Standard Drinks/Week Comments Never 0 (1 standard drink = 0.6 oz pur e alcohol) Alcohol Answer Date Recorded How often do you have a drink containing alcohol ? 0 03/16/2024 How many drinks containing a lcohol do you have on a typical day when you are drinking? 0 03/16/2024 How often do you have six or more drinks on one occasion? 0 03/16/2024 Depression Answer Date Recorded Patient Health Questionnaire-9 Score 6 08/26/2023 Patient Health Questionnaire-9 Score 6 08/26/2023 Last PHQ-9: Questionnaire Data Not on file 0 08/26/2023 Housing Stability Answer Date Recorded What is your housing situation today? I have clarence kilgore 02/04/[address] you li ve. Do you have problems with any of the following? None of the above 02/04/2023 Food Insecurity Answer Date Recorded Within the past 12 months, y ou worried that your food would run out before you got money to buy more: Sometimes True 2023 Within the past 12 months,th e food you bought just didn't last and you didn't have enough money to get more: Sometimes True 06/25/2023 Transportation Answer Date Recorded In the past 12 months, has l ack of transportation kept you from medical appts, meetings, work or from getting things needed for daily living? No 02/04/2023 Utilities Answer Date Recorded In the past 12 months, has t he electric, gas, oil or water company threatened to shut off services in your home? No 02/04/2023 Depression Answer Date Recorded Patient Health Questionnaire-2 Score 2 08/26/2023 Sex and Gender Information Value Date Recorded Sex Assigned at Male 02/19/2022 10:31 AM EDT Legal Sex Male 10:31 AM EDT Gender Identity Male 08/02/2022 9:46 AM EDT Sexual Orientation Choose not to disclose 2021 10:31 AM EDT documented as of this encounter Miscellaneous Notes * Telephone Encounter - Palmira Renteria - 07/28/2024 12:13 PM EDT TC from pt requesting medication refill. Medications needing refill : LORazepam (Ativan) 0.5 MG tablet To be sent to: [facility]/pharmacy #[id number] documented in this encounter Plan of Treatment Upcoming Encounters Date Type Department Care Team (Late st Contact Info) Description 09/03/2024 11:15 AM EDT Office Visit [facility] MEDICINE [address] [place] [address] Yari Laughlin ANP [address] [place] [address] documented as of this encounter Visit Diagnoses Not on filedocumented in this encounter Additional Health Concerns Assessment Noted Time PHQ-9 Depression Total Score: 6 08/26/19 24 9:13 AM EDT documented as of this encounter Care Teams Channel Marketing Manager Relationship Specialty Start Date End Date Yari Laughlin ANP [address] [place] [address] PCP - General Family Medicine 07/02/22 [place] FNP [address] [place] [address] Nurse Practitioner Family Medicine 03/18/23 documented as of this encounter
--- OUTSIDE RECORDS SUMMARY | 2024-08-31 09:55 | XMS_ITS | Encounter Summary ---
Author Organization [employer] Address [address] [facility] [address] [place] [address] Care Team Providers Care Navy Senior Officer Name Role Phone Laughlin Yari WHITTAKER Primary Care Provider [phone] [place] Unavailable Unavailable Reason for Visit * Reason Comments Med Change Request Encounter Details Date Type Department Care Team ([facility] st Contact Info) Description 08/26/2023 Refill [facility] [address] [place] [address] Alee Quezada FNP Social History Tobacco Use Types Packs/Day Years Used Date Smoking Tobacco: Never Passive Smoke Exposure: Never Smokeless Tobacco: Never Alcohol Use Standard Drinks/Week Comments Never 0 (1 standard drink = 0.6 oz pur e alcohol) Depression Answer Date Recorded Patient Health Questionnaire-9 [...] encounter Miscellaneous Notes * Telephone Encounter - JYOTHI Alaniz - 08/28/2023 10:35 AM EDT Approving, but needs appt for additional refills. documented in this encounter Plan of Treatment Upcoming Encounters Date Type Department Care Team (Late st Contact Info) Description 09/03/2024 11:15 AM EDT Office Visit [facility] [address] [place] [address] Yari Laughlin ANP [address] [place] [address] documented as of this encounter Visit Diagnoses Not on filedocumented in this encounter Additional Health Concerns Assessment Noted Time PHQ-9 Depression Total Score: 6 08/26/19 24 9:13 AM EDT documented as of this encounter Care Teams Navy Senior Officer Relationship Specialty Start Date End Date Yari Laughlin ANP [address] [place] [id number] PCP - General Family Medicine 07/02/22 [place] FNP [address] [place] [phone] Nurse Practitioner Family Medicine 03/18/23 documented as of this encounter
--- OUTSIDE RECORDS SUMMARY | 2024-08-31 09:55 | XMS_ITS | Encounter Summary ---
Author Organization [employer] Address [address] [facility] [address] [place] [address] Care Team Providers Care Curve Cleaner Name Role Phone Yari Laughlin Primary Care Provider [phone] [place] Unavailable Unavailable Encounter Details Date Type Department Care Team ([facility] st Contact Info) Description 09/27/2023 Orders Only [facility] MEDICINE [address] [place], [place] [phone] Yari Laughlin ANP [address] [place] [address] Social History Tobacco Use Types Packs/Day Years [...] AM EDT documented as of this encounter Plan of Treatment Upcoming Encounters Date Type Department Care Team (Late st Contact Info) Description 09/03/2024 11:15 AM EDT Office Visit [facility] MEDICINE [address] [place] [phone] Yari Laughlin ANP [address] [place] [address] documented as of this encounter Visit Diagnoses Not on filedocumented in this encounter Additional Health Concerns Assessment Noted Time PHQ-9 Depression Total Score: 6 08/26/19 24 9:13 AM EDT documented as of this encounter Care Teams Curve Cleaner Relationship Specialty Start Date End Date Yari Laughlin ANP [address] [place] [id number] PCP - General Family Medicine 07/02/22 [place] FNP [address] [place] [phone] Nurse Practitioner Family Medicine 03/18/23 documented as of this encounter
--- OUTSIDE RECORDS SUMMARY | 2024-08-31 09:55 | XMS_ITS | Encounter Summary ---
Author Organization [employer] Address [address] [place] [address] [address] [place] [address] Care Team Providers Care Judge Clerk Name Role Phone Yari Laughlin Primary Care Provider [phone] [place] Unavailable Unavailable Reason for Visit * Reason Onset Date Comments Med Refill 01/20/2024 Encounter Details Date Type Department Care Team ([facility] st Contact Info) Description 01/20/2024 Telephone [facility] MEDICINE [address] [place] [address] Yari Laughlin ANP [address] [place] [address] Med Refill Social History Tobacco Use Types [...] encounter Miscellaneous Notes * Telephone Encounter - Yesi Barney LPN - 01/20/2024 11:54 AM EDT Please review unclear if PCP prescribes? * Telephone Encounter - Palmira Renteria - 01/20/2024 11:41 AM EDT TC from pt requesting medication refill. Medications needing refill : metoprolol tartrate (Lopressor) 50 MG tablet To be sent to: [facility]/pharmacy #[id number] documented in this encounter Plan of Treatment Upcoming Encounters Date Type Department Care Team (Late st Contact Info) Description 09/03/2024 11:15 AM EDT Office Visit [facility] MEDICINE [address] [place] [address] Yari Laughlin ANP [address] [place] [address] documented as of this encounter Visit Diagnoses Not on filedocumented in this encounter Additional Health Concerns Assessment Noted Time PHQ-9 Depression Total Score: 6 08/26/19 24 9:13 AM EDT documented as of this encounter Care Teams Judge Clerk Relationship Specialty Start Date End Date Yari Laughlin ANP [address] [place] [address] PCP - General Family Medicine 07/02/22 [place] FNP [address] [place] [address] Nurse Practitioner Family Medicine 03/18/23 documented as of this encounter
--- OUTSIDE RECORDS SUMMARY | 2024-08-31 09:55 | XMS_ITS | Clinical Summary ---
Author Organization [employer] Address [address] [place] [address] [address] [place] [address] Care Team Providers Care Chemical Technician Name Role Phone Yari Laughlin PANFILO Primary Care Provider [phone] [place] Unavailable Unavailable Allergies No known active allergies Medications * This document contains information received from the source organization and may not represent a complete record from that organization. lidocaine (Lidoderm) 5 % patchIndication s:Low back pain radiating to right leg Apply 1 patch topically in the morning. Remove & discard patch within 12 hours or as directed by MD. 30 patch 2 05/22/19 23 Active metoprolol tartrate (Lopressor) 50 MG tablet Take 50 mg by mouth 2 times daily. 05/07/19 23 Active busPIRone (Buspar) 10 MG tabletIndicatio ns:Anxiety Take 1 tablet (10 mg) by mouth 2 times daily. 180 tablet 3 08/26/19 24 Active baclofen (Lioresal) 10 MG tablet Take one tablet TID PRN 30 tablet 08/26/19 24 Active baclofen (Lioresal) 10 MG tablet Take 1 tablet (10 mg) by mouth 3 times daily. 90 tablet 12/10/19 24 Active sildenafil (Viagra) 50 MG tabletIndicatio ns:Vasculogenic erectile dysfunction, unspecified vasculogenic erectile dysfunction type 1 tablet 30-60min before sexual activity 20 tablet 03/16/20 24 Active Blood Pressure kit 1 each 2 times daily. 1 kit 04/01/20 24 025 Active Spacer/Aero-Hol ding Chambers (OptiChamber Viki) misc 1 each every 4 (four) hours if needed (asthma). 1 each 04/01/20 24 Active Diclofenac Sodium 1 % gel APPLY 2 G TOPICALLY 4 TIMES A DAY 100 g 3 04/02/20 24 Active fluticasone furoate (Arnuity Ellipta) 100 MCG/ACT inhaler Inhale 1 puff Once per day. Rinse mouth with water after use to reduce aftertaste and incidence of candidiasis. Do not swallow. 1 each 04/13/20 24 025 Active albuterol 108 (90 Base) MCG/ACT inhalerIndicati ons:Cough in adult Inhale 2 puffs every 6 (six) hours if needed for wheezing. 18 g 2 04/13/20 24 025 Active carboxymethylce llulose (Refresh Tears) 0.5 % ophthalmic solution Administer 1 drop into both eyes 3 times daily. 15 mL 04/29/19 25 Active White Petrolatum-Mine ral Oil (artificial tears) 83-15 % ointment ophthalmic ointment Apply to both eyes at bedtime. May cause blurry vision. 3.5 g 04/29/19 25 Active olmesartan (Benicar) 40 MG tabletIndicatio ns:Essential hypertension Take 1 tablet (40 mg) by mouth Once per day. 90 tablet 3 05/08/19 25 026 Active polyvinyl alcohol (Liquifilm Tears) 1.4 % ophthalmic solution INSTILL 1 DROP IN EACH EYE THREE TIMES DAILY 04/29/19 25 Active LORazepam (Ativan) 0.5 MG tabletIndicatio ns:Anxiety Take 1 tablet (0.5 mg) by mouth if needed each day for anxiety. 10 tablet 07/29/19 25 Active betamethasone valerate (Valisone) 0.1 % ointmentIndicat ions:Irritant contact hand eczema APPLY TOPICALLY TWICE DAILY TO RASH ON HANDS NEEDED. MAY USE FOR 1-2 WEEKS MAXIMUM. 45 g 08/07/19 25 Active Emollient (CeraVe Daily Moisturizing) lotionIndicatio ns:Irritant contact hand eczema,Dry skin Use twice daily for dry skin 355 mL 11 08/07/19 25 Active betamethasone valerate (Valisone) 0.1 % ointmentIndicat ions:Irritant contact hand eczema APPLY TOPICALLY TWICE DAILY TO RASH ON HANDS NEEDED. MAY USE FOR 1-2 WEEKS MAXIMUM. 45 g 12/26/19 24 025 Discontinued(R eorder (will not trigger notification to Pharmacy)) Hospital, Clinic, or Other Facility Administered Medication Ordered Dose Route Frequency Start Date End Date Status cloNIDine (Catapres) tablet 0.1 mgIndications:Hypertensive urgency 0.1 mg PO Once 08/06/2024 08/06/2024 Ended Active Problems Problem Noted Date Diagnosed Date Panic attacks 08/06/2024 Severe anxiety 08/06/2024 Constriction of bronchial airway 04/13/2024 Assessment & Plan (04/13/2024 11:33 AM EST): RO asthma exacerbation. Patient doesn't have dx asthma yet but he's presented with few episodes of bronchial constriction, likely triggered by viral URI which seems to be resolved now. Continue albuterol q4-6h prn sob, add Fluticasone inh 100 mg/d and fu with PCP, to evaluate PFTs once sxs are resolved. He's to be out of work x2d Right carpal tunnel syndrome 09/27/2023 Overview (09/27/2023): moderately sereve compression palsy of R median nerve consistent w/ moderately severe CTS. NCS 02/20/23 Left carpal tunnel syndrome 09/27/2023 Overview (09/27/2023): mild per NCS 02/20/23 Palpitation 10/22/2022 Assessment & Plan (10/22/2022 3:43 PM EDT): Hx suggested of PVCs. -No arrhythmia on EKG. -Recomend weening of soda next few weeks. -Pt will call cardiology to schedule follow up as he may need holter montior for bradycardia. -His BP is a little high today and Pt believes because he feels anxious. -Will follow up with PCP for BP check in the next few months. Paroxysmal atrial fibrillation 09/12/2022 Lumbar strain, initial encounter 04/10/2022 Assessment & Plan (04/10/2022 7:55 PM EST): Recommended To decrease physical activity without prolonged rest for 2d, out of work until 04/13/22. Stretching exercise given to patient, will refer to PT. Use tylenol and ibuprofen prn pain. Take Flexeril at bedtime x 2-3d then prn, caution with driving or performing activities that require vigilance. Use heat to affected area. Sciatica of right side 04/10/2022 Assessment & Plan (04/10/2022 8:12 PM EST): See above Refer to PT Avoid heavy lifting. I told patient to report incident at work if applicable Irritant contact hand eczema 04/10/2022 Assessment & Plan (04/10/2022 8:09 PM EST): Seems to have tinea as well, treat w lotrisone x 2w Use betamethasone bid + moisturizer cream x 2w then prn Wear protective gloves Anxiety and depression 04/10/2022 Assessment & Plan (08/26/2023 9:33 AM EDT): Doing well and will continue Buspirone 10 mg twice daily. May also take Ativan (Lorazepam) 0.5 mg occasionally prn panic attack, no more than 10 tablets per month. Pt experienced worsened sexual dysfunction with recent trial of Escitalopram 5 mg daily. Not interested in counseling at this time. Since this provider will be retiring, patient is now referred back to his PCP for further medication management. For any issues or concerns, contact [facility]. All his questions were answered. I have wished him well. He agrees with the plan Assessment & Plan (06/25/2023 10:19 AM EST): Doing well and will continue Ativan (Lorazepam) 0.5 mg occasionally prn panic attack, no more than 10 tablets per month. May also continue Buspirone 10 mg twice daily. Pt experienced worsened sexual dysfunction with recent trial of Escitalopram 5 mg daily. Not interested in counseling at this time. On 03/28/2023 provider informed the pt that I would be retiring. Meanwhile, F/u 2 months. He agrees with the plan Assessment & Plan (04/29/2023 10:53 AM EST): Pt experienced worsened sexual dysfunction with recent trial of Escitalopram 5 mg daily and has stopped taking that. If problems persist, suggest he F/U with his PCP. No new meds at this time, continue Ativan (Lorazepam) 0.5 mg occasionally prn panic attack, no more than 10 tablets per month. May also continue Buspirone 10 mg twice daily. He was referred for counseling, and will be given the phone number to F/U. On 03/28/2023 provider informed the pt that I would be retiring. Meanwhile, F/u 2 months. He agrees with the plan Assessment & Plan (03/28/2023 3:25 PM EST): Previously had intermittent anxiety that responded well to prn meds. Now more constant symptoms, with depressive elements as well. Will start Escitalopram 5 mg daily. Cautioned re S/E including worsening depression or SI -- if this occurs stop the medication and let us know right away; or sexual dysfunction. May continue Ativan (Lorazepam) 0.5 mg occasionally prn panic attack, no more than 10 tablets per month. May also continue Buspirone 10 mg twice daily. Will also refer for counseling. Today 03/28/2023 provider informed the pt that I would be retiring within approx 1/2 year, but we would work to ensure smooth transition of care. F/u 1 month. He agrees with the plan Assessment & Plan (11/06/2022 9:17 AM EDT): May continue Ativan (Lorazepam) 0.5 mg occasionally prn panic attack, no more than 10 tablets per month. May also continue Buspirone 10 mg twice daily. If having anxiety more frequently, recommend taking the Buspirone 10 mg BID every day for a while rather than prn. F/u 3 months. He agrees with the plan Assessment & Plan (08/14/2022 3:55 PM EDT): May continue Ativan (Lorazepam) 0.5 mg occasionally prn panic attack, no more than 10 tablets per month. May also continue Buspirone 10 mg twice daily. F/u 3 months. He agrees with the plan Assessment & Plan (06/14/2022 10:41 AM EST): May continue Ativan (Lorazepam) 0.5 mg occasionally prn panic attack, no more than 10 tablets per month. May also continue Buspirone 10 mg twice daily. F/u 2 months. He agrees with the plan Obstructive sleep apnea syndrome 07/19/2017 Chest pain at rest 11/22/2016 Essential hypertension 08/21/2016 Overview (09/13/2022): echocardiogram was done on 06/16/2021 showing EF 63%, moderate LVH, no valve abnormalities Assessment & Plan (08/02/2022 9:56 AM EDT): -Initial and repeat BP elevated in office: 150s/90s mmHg, possibly elevated r/t pain -Encouraged to continue with current regimen: ?? Metoprolol 50mg daily ?? Nifedipine 30mg daily -Encouraged lifestyle interventions including low salt diet -Home BP log provided to record home readings. Return parameters reviewed -ED precautions reviewed Follow up with PCP 09/13/22 for Transfer Patient visit, sooner PRN. Patient in agreement with plan. Resolved Problems Problem Noted Date Diagnosed Date Resolved Date Panic disorder 08/21/2016 06/14/2022 Encounters * This document contains information received from the source organization and may not represent a complete record from that organization. Date Type Department Care Team Description 08/06/2024 11:00 AM EDT Office Visit [facility] [address] [place] [phone] Yari Laughlin ANP Hypertensive urgency (Primary Dx); Essential hypertension; Anxiety and depression; Obstructive sleep apnea syndrome; Class 3 severe obesity with serious comorbidity and body mass index (BMI) of 45.0 to 49.9 in adult, unspecified obesity type; Irritant contact hand eczema; Dry skin 08/06/2024 Travel 08/04/2024 Telephone [facility] [address] [place] [address] Merna Lee MA chart prep 07/28/2024 Refill [facility] [address] [place] [address] Lara Ferris RN Anxiety 07/28/2024 Telephone [facility] [address] [place] [address] Yari Laughlin ANP Med Refill 07/03/2024 Population Health Risk Score [facility] ([facility] Department [address] [place] [phone] Provider, Population Health Generic 06/27/2024 Telephone [facility] [address] [place] [address] Ghada Jamison RN Status Check: BP 06/09/2024 Telephone [facility] [address] [place] [address] Yari Laughlin ANP 06/09/2024 Travel 06/05/2024 Outside Procedure [facility] [address] [place] [address] Wade Mayon, OD Presbyopia (Primary Dx) 06/04/2024 9:45 AM EST Office Visit [facility] [address] [place] [address] Wade Mayon, OD Hyperopia of both eyes (Primary Dx) from Last 3 Months Immunizations Name Administration Dates Next Due Influenza injectable quadriv alent preservative free 04/27/2019,05/08/2018,01/22/2017 MMR 12/06/2023 Tdap 08/21/2016 Family History Medical History Relation Name Comments Heart disease Father Hypertension Father Hypertension Mother Relation Name Status Comments Father Mother Social History Tobacco Use Types Packs/Day Years Used Date Smoking Tobacco: Never Passive Smoke Exposure: Never Smokeless Tobacco: Never Tobacco Cessation:Counseling Given: Not Answered Alcohol Use Standard Drinks/Week Comments Never 0 [...] housing situation today? I have clarence kilgore 08/06/[address] you li ve. Do you have problems with any of the following? None of the above 08/06/2024 Food Insecurity Answer Date Recorded Within the past 12 months, y ou worried that your food would run out before you got money to buy more: Never True 08/06/2024 Within the past 12 months,th e food you bought just didn't last and you didn't have enough money to get more: Never True Transportation Answer Date Recorded In the past 12 months, has l ack of transportation kept you from medical appts, meetings, work or from getting things needed for daily living? No 08/06/2024 Utilities Answer Date Recorded In the past 12 months, has t he electric, gas, oil or water company threatened to shut off services in your home? No 08/06/2024 Depression Answer Date Recorded Patient Health Questionnaire-2 Score 2 08/26/2023 Internet Access Answer Date Recorded Internet Access Q1 Yes 08/06/2024 Internet Access Q2 Not on file 08/06/2024 Sex and Gender Information Value Date Recorded Sex Assigned at Male 02/19/2022 10:31 AM EDT Legal Sex Male 10:31 AM EDT Gender Identity Male 08/02/2022 9:46 AM EDT Sexual Orientation Choose not to disclose 2021 10:31 AM EDT Last Filed Vital Signs Vital Sign Reading Time Taken Comments Blood Pressure 144/80 08/06/2024 11:59 AM EDT Pulse 80 08/06/2024 10:48 AM EDT Temperature 37.1 ??C (98.8 ??F) 05/08/2024 11:[address] Respiratory Rate 18 08/06/2024 10:48 AM EDT Oxygen Saturation 96% 05/08/2024 11:30 AM EST Inhaled Oxygen Concentration - - Weight 144 kg (318 lb) 08/06/2024 10:48 AM EDT Height 172.7 cm (5' 8 ) 08/06/2024 10:48 AM EDT Body Mass Index 48.35 08/06/2024 10:48 AM EDT Plan of Treatment Upcoming Encounters Date Type Department Care Team (Late st Contact Info) Description 09/03/2024 11:15 AM EDT Office Visit [facility] [address] [place] [address] Yari Laughlin ANP [address], [place] [phone] Health Maintenance Due Date Last Done Comments CT Colonography 1975 Colonoscopy 1975 Dental Oral Exam 1975 Dental Prophylaxis 1975 Dental X-Ray: Bitewings 1975 Dental X-Ray: Full Mouth 1975 FIT 1975 FOBT 1975 Sigmoidoscopy 1975 Family Planning (PISQ) 1990 Hepatitis B Vaccines (1 of 3 - 19+ 3-dose series) 1994 Pneumococcal Vaccine: Pediatrics (0 to 5 Years) and At-Risk Patients (6 to 49) Years) (1 of 2 - PCV) 1994 COVID-19 Vaccine ( - 2023-2 5 season) 2023 03/08/2021, 08/13/2020 Influenza Vaccine (#1) 2023 , 05/08/2018, 01/22/2017 Depression Screening 08/25/2024 08/26/2023, 08/26/2023 Alcohol/Substance Use Screening 03/16/2025 03/16/2024 Zoster Vaccines (1 of 2) 2025 SDOH Screening 08/06/2025 08/06/2024 Tobacco Screening 08/06/2025 08/06/2024 Colorectal Cancer Screening 12/10/2025 FIT DNA/Cologuard 12/10/2025 12/10/2022 DTaP/Tdap/Td Vaccines (2 - T d or Tdap) 08/21/2026 08/21/2016 Lipid Panel 01/18/2027 01/18/2022, 08/01/2020 RSV Patients and Patients Aged 60 years or older (1 - 1-dose 75+ series) 2050 HIV Screening Completed 04/01/2024 Hepatitis C Screening Completed 04/01/2024 HIB Vaccines Aged Out No longer eligi ble based on patient's age to complete this topic HPV Vaccines Aged Out No longer eligi ble based on patient's age to complete this topic Hepatitis A Vaccines Aged Out No long er eligible based on patient's age to complete this topic IPV Vaccines Aged Out No longer eligi ble based on patient's age to complete this topic Meningococcal Vaccine Aged Out No jovanna annita eligible based on patient's age to complete this topic RSV under 20 months Aged Out No longe r eligible based on patient's age to complete this topic Rotavirus Vaccines Aged Out No longer eligible based on patient's age to complete this topic Procedures Procedure Name Priority Date/Time Associated Diagnosis Comments HEPATITIS C AB W/REFL TO HCV RNA, QN, PCR Routine 04/01/2024 11:39 AM EST Generalized weakness HIV 1/2 ANTIGEN/ANTIBODY, FOURTH GENERATION W/RFL Routine 04/01/2024 11:39 AM EST Generalized weakness LAB COLOGUARD?? COLON CANCER SCREEN Routine 12/10/2022 9:00 PM EDT Screening for malignant neoplasm of colon LIPID PANEL, STANDARD Routine 01/18/2022 11:33 AM EDT from Last 3 Months or Most Recently Relevant to Health Maintenance Results * Hepatitis C Antibody with Reflex to HCV, RNA, Quantitative, Real-Time PCR (04/01/2024 11:39 AM EST) Hepatitis C Antibody Nonreactive Nonreactive [facility] Comment:Antibodies to HCV no t detected; does not exclude early acuteHCV infection. Blood Venous blood specimen / Unknown 04/01/2024 11:39 AM EST 04/01/2024 1:13 PM EST us Mykel Taylor MD LAB BLOOD ORDERABLES Final Resul t [facility] [address] [place] [phone] * HIV-1/2 Antigen and Antibodies, Fourth Generation, with Reflexes (04/01/2024 11:39 AM EST) HIV AB/AG Nonreactive Nonreactive [facility] Comment:HIV-1 p24 Ag and/or HIV-1/HIV-2 Ab not detected.A test result that is nonreactive does not exclude thepossibility of exposure to or infection with HIV-1 and/orHIV-2. Nonreactive results in this assay for individualswith prior exposure to HIV-1 and/or HIV-2 may be due toantigen and antibody levels that are below the limit ofdetection of this assay.The [employer] HIV Ag/Ab Combo assay result andsupplemental assay results should be interpreted inconjunction with the patient's clinical presentation,history and other laboratory results. If the results areinconsistent with clinical evidence, additional testing issuggested to confirm the result. Blood Venous blood specimen / Unknown 04/01/2024 11:39 AM EST 04/01/2024 1:13 PM EST Mykel Taylor MD LAB BLOOD ORDERABLES Final Resul t [facility] [address] [place] [phone] * Cologuard?? colon cancer screening (12/10/2022 9:00 PM EDT) Pathologist [facility] Cologuard Result Negative Negative 12/20/19 7:05 PM EDT [facility] (CLIA #:[id number]) Comment: NEGATIVE TEST RESULT. A negative Cologuard result indicates a low likelihood that a colorectal cancer (CRC) or advanced adenoma (adenomatous polyps with more advanced pre-malignant features) ??is present. The chance that a person with a negative Cologuard test has a colorectal cancer is less than 1 in 1500 (negative predictive value >99.9%) or has an ??advanced adenoma is less than ??5.3% (negative predictive value 94.7%). These data are based on a prospective cross-sectional study of 10,000 individuals at average risk for colorectal cancer who were screened with both Cologuard and colonoscopy. (Alfonzo Collazo al, N Engl J Med 2014;370(14):1286- 1297) The normal value (reference range) for this assay is negative. COLOGUARD RE-SCREENING RECOMMENDATION: Periodic colorectal cancer screening is an important part of preventive healthcare for asymptomatic individuals at average risk for colorectal cancer. ??Following a negative Cologuard result, the [place] [employer] Society and U.S. Multi-Society Task Force screening guidelines recommend a Cologuard re-screening interval of 3 years. References: [place] [employer] Guideline for Colorectal Cancer Screening: https://www.cancer.org/cancer/nmcwo-wocdlw-azfiss/vvvljzeir-cxqdprmrw-bhkdgvr/ac s-rec ommendations.html.; Rigoberto DK, Kirsty CR, Cristobal StoneK, Colorectal Cancer Screening: Recommendations for Physicians and Patients from the U.S. Multi-Society Task Force on Colorectal Cancer Screening , Am J Gastroenterology 2017; 112:5626-1464. TEST DESCRIPTION: Composite algorithmic analysis of stool DNA-biomarkers with hemoglobin immunoassay. ?? Quantitative values of individual biomarkers are not reportable and are not associated with individual biomarker result reference ranges. Cologuard is intended for colorectal cancer screening of adults of either sex, 45 years or older, who are at average-risk for colorectal cancer (CRC). Cologuard has been approved for use by the U.S. FDA. The performance of Cologuard was established in a cross sectional study of average-risk adults aged 50-84. Cologuard performance in patients ages 45 to 49 years was estimated by sub-group analysis of near-age groups. Colonoscopies performed for a positive result may find as the most clinically significant lesion: colorectal cancer [4.0%], advanced adenoma (including sessile serrated polyps greater than or equal to 1cm diameter) [20%] or non- advanced adenoma [31%]; or no colorectal neoplasia [45%]. These estimates are derived from a prospective cross-sectional screening study of 10,000 individuals at average risk for colorectal cancer who were screened with both Cologuard and colonoscopy. (Alfonzo Collazo al, N Engl J Med 2014;370(14):8216-0732.) Cologuard may produce a false negative or false positive result (no colorectal cancer or precancerous polyp present at colonoscopy follow up). A negative Cologuard test result does not guarantee the absence of CRC or advanced adenoma (pre-cancer). The current Cologuard screening interval is every 3 years. ([place] [employer] and U.S. Multi-Society Task Force). Cologuard performance data in a 10,000 patient pivotal study using colonoscopy as the reference method can be accessed at the following location: www.[employer]/results. Additional description of the Cologuard test process, warnings and precautions can be found at www.PsychSignalrd.com. Stool specimen (specimen) 12/10/2022 9:00 PM EDT 12/14/2022 7:40 PM EDT [facility] MOLECULAR DIAGNOSTICS ORDERA BLES Final Result [facility] (CLIA #:[id number]) [place] [address], * (ABNORMAL) LIPID PANEL, STANDARD (01/18/2022 11:33 AM EDT) Chol/HDLC Ratio 6.3(H) <5.0 (calc) [facility] Cholesterol, Total 144 <200 mg/dL [facility] HDL Cholesterol 23(L) > OR = 40 mg/dL [facility] LDL Cholesterol 88 mg/dL (calc) [facility] Comment: Reference range: <100 ?? Desirable range <100 mg/dL for primary prevention; ?? <70 mg/dL for patients with CHD or diabetic patients ?? with > or = 2 CHD risk factors. ?? LDL-C is now calculated using the Buzz-Heaton ?? calculation, which is a validated novel method providing ?? better accuracy than the Friedewald equation in the ?? estimation of LDL-C. ?? Buzz GARCIA et al. LAZARO. 2013;310(19): 5599-4517 ?? (http://education.[employer]/faq/CSY834) Non-HDL Cholesterol 121 <130 mg/dL (calc) [facility] Comment: For patients with diabetes plus 1 major ASCVD risk ?? factor, treating to a non-HDL-C goal of <100 mg/dL ?? (LDL-C of <70 mg/dL) is considered a therapeutic ?? option. Triglycerides 254(H) <150 mg/dL [facility] Comment: ?? If a non-fasting specimen was collected, consider repeat triglyceride testing on a fasting specimen if clinically indicated. ?? Cyrus et al. J. of Clin. Lipidol. 2015;9:129-169. ?? 01/18/2022 11:3 3 AM EDT us Demetra Beckman MD LAB BLOOD ORDERABLES Final R esult [facility] from Last 3 Months or Most Recently Relevant to Health Maintenance Insurance [facility] C3 DENTAL-[facility] MEDICAID STAND ADULT Care Teams Chemical Technician Relationship Specialty Start Date End Date Yari Laughlin ANP [address] [place] [phone] PCP - General Family Medicine 07/02/22 [place] FNP [address] [place] [phone] Nurse Practitioner Family Medicine 03/18/23
== END 2024-08-31 10:06 | disposition home or self-care (01) ==
LOC: HO.HCS 09:38
PROVIDERS: PCP Internal Medicine; Visit Provider Internal Medicine
DX: I10 Essential (primary) hypertension (principal); I48.0 Paroxysmal atrial fibrillation; G47.33 Obstructive sleep apnea (adult) (pediatric); Z99.89 Dependence on other enabling machines and devices; E66.01 Morbid (severe) obesity due to excess calories
CPT/HCPCS: 93010; 99214

== ENCOUNTER → 2024-08-31 09:38 | Outpatient (BNVA) | payer MEDICAID, SELFPAY | PROVIDERS: PCP Internal Medicine; Visit Provider Internal Medicine | DX: I10 Essential (primary) hypertension (principal); I48.0 Paroxysmal atrial fibrillation; G47.33 Obstructive sleep apnea (adult) (pediatric); E66.01 Morbid (severe) obesity due to excess calories; R00.2 Palpitations; Z99.89 Dependence on other enabling machines and devices; Z68.42 Body mass index [BMI] 45.0-49.9, adult | CPT/HCPCS: 93005; 99212 ==

== ENCOUNTER 2025-03-04 08:34 | Outpatient (REF) | payer MEDICAID, SELFPAY ==
--- OUTSIDE RECORDS SUMMARY | 2025-03-04 08:54 | XMS_ITS | Encounter Summary ---
Author Organization [employer] Address [address] [place] [address] [address] [address] Care Team Providers Care Government Service Executive Name Role Phone Yari Laughlin Primary Care Provider [phone] [place] Unavailable Unavailable Reason for Visit * Reason Onset Date Comments chart prep 03/02/2025 Encounter Details Date Type Department Care Team ([facility] st Contact Info) Description 03/02/2025 Telephone [facility] MED[facility]INE [address] [place] [address] Yari Laughlin ANP [address] [place] [address] chart prep Social History Tobacco Use Types Packs/Day Years [...] Answer Date Recorded Patient Health Questionnaire-9 Score 0 12/04/2024 Patient Health Questionnaire-9 Score 0 12/04/2024 Last PHQ-9: Questionnaire Data Not on file 0 12/04/2024 Housing Stability Answer Date Recorded What is [...] Answer Date Recorded Patient Health Questionnaire-2 Score 0 12/04/2024 Internet Access Answer Date Recorded Internet Access [...] encounter Miscellaneous Notes * Telephone Encounter - Radha Leslie [place] - 03/02/2025 8:56 AM EST Chart Prep Labs: not done Patient contacted and notified. Pt is in [place] will be here tomorrow afternoon will try to get done. Images: not applicable Referrals: complete Vaccines due: Covid, PCV20, and Hep B Screenings: not applicable Overdue care gaps: Not applicable documented in this encounter Plan of Treatment Upcoming Encounters Date Type Department Care Team (Late st Contact Info) Description 03/04/2025 1:15 PM EST Office Visit [facility]INE [address] [place] [address] Yari Laughlin ANP [address] [place] [address] documented as of this encounter Visit Diagnoses Not on filedocumented in this encounter Additional Health Concerns Assessment Noted Time PHQ-9 Depression Total Score: 0 12/05/19 25 11:05 AM EDT documented as of this encounter Care Teams Government Service Executive Relationship Specialty Start Date End Date Yari Laughlin ANP [address] [place] [address] PCP - General Family Medicine 07/02/22 [place] FNP [address] [place] [address] Nurse Practitioner Family Medicine 03/18/23 documented as of this encounter
--- OUTSIDE RECORDS SUMMARY | 2025-03-04 08:54 | XMS_ITS | Clinical Summary ---
Author Organization [employer] Address [address] [place] [address] 7 [place] [address] Care Team Providers Care Bread Dumper Name Role Phone Qian Yari WHITTAKER Primary Care Provider [phone] [place] Unavailable Unavailable Allergies No known active allergies Medications * This document contains information received from the source organization and may not represent a complete record from that organization. lidocaine (Lidoderm) 5 % patchIndications :Low back pain radiating to right leg Apply 1 patch topically in the morning. Remove & discard patch within 12 hours or as directed by MD. 30 patch 2 05/22/19 23 Active metoprolol tartrate (Lopressor) 50 MG tablet Take 50 mg by mouth 2 times daily. 05/07/19 23 Active baclofen (Lioresal) 10 MG tablet Take one tablet TID PRN 30 tablet 08/26/19 24 Active baclofen (Lioresal) 10 MG tablet Take 1 tablet (10 mg) by mouth 3 times daily. 90 tablet 12/10/19 24 Active sildenafil (Viagra) 50 MG tabletIndication s:Vasculogenic erectile dysfunction, unspecified vasculogenic erectile dysfunction type 1 tablet 30-60min before sexual activity 20 tablet 03/16/20 24 Active Blood Pressure kit 1 each 2 times daily. 1 kit 04/01/20 24 025 Active Spacer/Aero-Hold ing Chambers (OptiChamber Viki) misc 1 each every [...] 025 Active albuterol 108 (90 Base) MCG/ACT inhalerIndicatio ns:Cough in adult Inhale 2 puffs every 6 (six) hours if needed for wheezing. 18 g 2 04/13/20 24 025 Active carboxymethylcel lulose (Refresh Tears) 0.5 % ophthalmic solution Administer 1 drop into both eyes 3 times daily. 15 mL 04/29/19 25 Active White Petrolatum-Stock Lifter al Oil (artificial tears) 83-15 % ointment ophthalmic ointment Apply to both eyes at bedtime. May cause blurry vision. 3.5 g 11 04/29/19 25 Active olmesartan (Benicar) 40 MG tabletIndication s:Essential hypertension Take 1 tablet (40 mg) by mouth Once per day. 90 tablet 3 05/08/19 25 026 Active polyvinyl alcohol (Liquifilm Tears) 1.4 % ophthalmic solution INSTILL 1 DROP IN EACH EYE THREE TIMES DAILY 04/29/19 25 Active Emollient (CeraVe Daily Moisturizing) lotionIndication s:Irritant contact hand eczema,Dry skin Use twice daily for dry skin 355 mL 11 08/07/19 25 Active busPIRone (Buspar) 10 MG tabletIndication s:Anxiety Take 1 tablet (10 mg) by mouth 2 times daily. 180 tablet 3 09/04/19 25 Active LORazepam (Ativan) 0.5 MG tabletIndication s:Anxiety Take 1 tablet (0.5 mg) by mouth if needed at bedtime for anxiety. 10 tablet 1 12/05/19 25 Active betamethasone valerate (Valisone) 0.1 % ointmentIndicati ons:Irritant contact hand eczema APPLY TOPICALLY TWICE DAIY TO RASH ON HANDS NEEDED. MAY USE FOR 1-2 WEEKS MAXIMUM 45 g 12/05/19 25 Active Tirzepatide-Weig ht Management (Zepbound) 7.5 MG/0.5ML solution auto-injectorInd ications:Class 3 severe obesity with serious comorbidity and body mass index (BMI) of 40.0 to 44.9 in adult, unspecified obesity type (HCC),Obstructiv e sleep apnea syndrome INJECT 0.5 ML (7.5 MG) UNDER THE SKIN 1 (ONE) TIME PER WEEK. 2 mL 2 02/18/20 25 Active Tirzepatide-Weig ht Management (Zepbound) 7.5 MG/0.5ML solution auto-injectorInd ications:Class 3 severe obesity with serious comorbidity and body mass index (BMI) of 40.0 to 44.9 in adult, unspecified obesity type (HCC),Obstructiv e sleep apnea syndrome Inject 0.5 mL (7.5 mg) under the skin 1 (one) time per week. 2 mL 2 12/05/19 25 025 Discontinued Active Problems Problem Noted Date Diagnosed Date Severe anxiety with panic 09/03/2024 Assessment & Plan (09/08/2024 8:46 AM EDT): During [facility] Consult Reji presenting with excessive worry/anxiety, difficulty controlling worry, anxiety/worry associated to restlessness and/or feeling keyed-up/On edge , easily fatigued , difficulty concentrating and/or mind going blank , and sleep disturbance difficulty falling asleep, and Fear and Recurrent panic attacks (abrupt surge of intese bala or discomfort that reaches peak within minutes and during which time the following occur (4 or more) palpitations, sweating, trembling/shaking, sensation of shortness of breath/smothering, Chest pain/discomfort, dizzy/unsteady/light-headed/faint, numbness/tingling, fear of dying; for a period of 18+ mo, for most or all symptoms in the context of unable to identify significant stressors. Pt reports his anxiety is still present and recently had a panic episode - experienced: chest pain, shortness of breath, shaking, etc). PCP started PRN medication for anxiety. Reji was under the care of [place]. He is scheduled with [facility] prescriber, Fabio Hinds on 10/21 at 10 am. Panic attacks 08/06/2024 Severe anxiety 08/06/2024 Constriction [...] the next few months. Paroxysmal atrial fibrillation (CMS/HCC) 023 Lumbar strain, initial encounter 04/10/2022 Assessment & [...] management. For any issues or concerns, contact [facility]. All his questions were answered. I have [...] pain -Encouraged to continue with current regimen: Metoprolol 50mg daily Nifedipine 30mg daily -Encouraged lifestyle interventions including low salt diet -Home BP log provided to record home readings. Return parameters reviewed -ED precautions reviewed Follow up with PCP 09/13/22 for Transfer Patient visit, sooner PRN. Patient in agreement with plan. Resolved Problems Problem Noted Date Diagnosed Date Resolved Date Panic disorder 08/21/2016 06/14/2022 Encounters Date Type Department Care Team Description 03/03/2025 Travel 03/02/2025 Telephone [facility] MEDICINE [address] [place] [phone] Yari Laughlin ANP chart prep 02/15/2025 Refill [facility] [address] [place] [phone] Yari Laughlin ANP Class 3 severe obesity with serious comorbidity and body mass index (BMI) of 40.0 to 44.9 in adult, unspecified obesity type (HCC); Obstructive sleep apnea syndrome 12/04/2024 11:00 AM EDT Office Visit [facility] [address] [place] [phone] Yair Laughlin ANP Class 3 severe obesity with serious comorbidity and body mass index (BMI) of 40.0 to 44.9 in adult, unspecified obesity type (Primary Dx); Obstructive sleep apnea syndrome; Essential hypertension; Anxiety 12/04/2024 Telephone [facility] [address] [place] [phone] Yari Laughlin ANP Prior Authorization 12/04/2024 Refill [facility] [address] [place] [phone] Yari Laughlin ANP Irritant contact hand eczema 12/04/2024 Travel 12/03/2024 Telephone [facility] [address] [place] [phone] Yari Laughlin ANP Chart Prep 12/02/2024 Refill [facility] [address] [place] [phone] Yari Laughlin ANP Obstructive sleep apnea syndrome from Last 3 Months Immunizations Immunization Administration Dates Next Due Influenza injectable quadriv alent preservative free 04/27/2019,05/08/2018,01/22/2017 Influenza, Injectable, MDCK, preservative free 01/15/2025 MMR 12/06/2023 Tdap 08/21/2016 Family History Medical [...] Sign Reading Time Taken Comments Blood Pressure 150/82 12/04/2024 11:04 AM EDT Pulse 67 12/04/2024 11:04 AM EDT Temperature 37.1 C (98.8 F) 05/08/2024 11:30 AM EST Respiratory Rate 16 12/04/2024 11:04 AM EDT Oxygen Saturation 95% 09/03/2024 11:38 AM EDT Inhaled Oxygen Concentration - - Weight 134 kg (295 lb) 12/04/2024 11:04 AM EDT Height 176.5 cm (5' 9.49 ) 12/04/2024 11:04 AM E DT Body Mass Index 42.95 12/04/2024 11:04 AM EDT Plan of Treatment Upcoming Encounters Date Type Department Care Team (Late st Contact Info) Description 03/04/2025 1:15 PM EST Office Visit [facility] MEDICINE [address] [place], [place] [phone] Yari Laughlin, ANP [address] [place], [place] [phone] Health Maintenance Due Date Last Done Comments CT Colonography 1975 Colonoscopy 1975 Dental Oral Exam 1975 Dental Prophylaxis 1975 Dental X-Ray: Bitewings 1975 Dental X-Ray: Full Mouth 1975 FIT 1975 Sigmoidoscopy 1975 Family Planning (PISQ) 1990 Hepatitis B Vaccines (1 of 3 - 19+ 3-dose series) 1994 Pneumococcal Vaccine: Pediatrics (0 to 5 Years) and At-Risk Patients (6 to 49) Years (1 of 2 - PCV) 1994 FOBT 12/11/2023 12/10/2022 COVID-19 Vaccine ( - 2025-26 season) 2024 03/08/2021, 08/13/2020 Alcohol/Substance Use Screening 03/16/2025 03/16/2024 Zoster Vaccines (1 of 2) 2025 SDOH Screening 08/06/2025 08/06/2024 Depression Screening 12/04/2025 12/04/2024, 12/05/19 Tobacco Screening 12/04/2025 12/04/2024 Colorectal Cancer Screening 12/10/2025 FIT DNA/Cologuard 12/10/2025 12/10/2022 Disability Screening 03/03/2026 03/03/2025 DTaP/Tdap/Td Vaccines (2 - Td or Tdap) 08/21/2026 08/21/2016 Lipid Panel 01/18/2027 01/18/2022, 08/01/2020 RSV Patients and Patients Aged 60 years or older (1 - 1-dose 75+ series) 2050 HIV Screening Completed 04/01/2024 Hepatitis C Screening Completed 04/01/2024 Influenza Vaccine Completed 01/15/2025, , 05/08/2018, Additional history exists HIB Vaccines Aged Out No longer eligi [...] patient's age to complete this topic Meningococcal B Vaccine Aged Out No l onger eligible based on patient's age to complete [...] 04/01/2024 11:39 AM EST Generalized weakness LAB COLOGUARD COLON CANCER SCREEN Routine 12/10/2022 9:00 PM EDT Screening for malignant neoplasm of colon LIPID PANEL, STANDARD Routine 01/18/2022 11:33 AM EDT from Last 3 Months or Most Recently Relevant to Health Maintenance Results * Hepatitis C Antibody with Reflex to HCV, RNA, Quantitative, Real-Time PCR (04/01/2024 11:39 AM EST) Hepatitis C Antibody Nonreactive Nonreactive [facility] Comment:Antibodies to HCV no t detected; does not exclude early acuteHCV infection. Blood Venous blood specimen / Unknown 04/01/2024 11:39 AM EST 04/01/2024 1:13 PM EST us Mykel Taylor MD LAB BLOOD ORDERABLES Final Resul t [facility] [address] [place] [phone] * HIV-1/2 Antigen and Antibodies, Fourth Generation, with Reflexes (04/01/2024 11:39 AM EST) Pathologist [facility] HIV AB/AG Nonreactive Nonreactive [facility] Comment:HIV-1 p24 Ag and/or HIV-1/HIV-2 Ab not detected.A test result that is nonreactive does not exclude thepossibility of exposure to or infection with HIV-1 and/orHIV-2. Nonreactive results in this assay for individualswith prior exposure to HIV-1 and/or HIV-2 may be due toantigen and antibody levels that are below the limit ofdetection of this assay.The A V.E.T.S.c.a.r.e. HIV Ag/Ab Combo assay result andsupplemental assay results should be interpreted inconjunction with the patient's clinical presentation,history and other laboratory results. If the results areinconsistent with clinical evidence, additional testing issuggested to confirm the result. Blood Venous blood specimen / Unknown 04/01/2024 11:39 AM EST 04/01/2024 1:13 PM EST us Mykel Taylor MD LAB BLOOD ORDERABLES Final Resul t [facility] [address] [place] [phone] [phone] * Cologuard?? colon cancer screening (12/10/2022 9:00 PM EDT) Cologuard Result Negative Negative 12/20/19 7:05 PM EDT [facility] (CLIA #:[id number]) Comment: NEGATIVE TEST RESULT. A negative Cologuard result indicates a low likelihood that a colorectal cancer (CRC) or advanced adenoma (adenomatous polyps with more advanced pre-malignant features) is present. The chance that a person with a negative Cologuard test has a colorectal cancer is less than 1 in 1500 (negative predictive value >99.9%) or has an advanced adenoma is less than 5.3% (negative predictive value 94.7%). These data are based on a prospective cross-sectional study of 10,000 individuals at average risk for colorectal cancer who were screened with both Cologuard and colonoscopy. (Alfonzo T. et al, N Engl J Med 2014;370(14):2971-7221) The normal value (reference range) for this assay is negative. COLOGUARD RE-SCREENING RECOMMENDATION: Periodic colorectal cancer screening is an important part of preventive healthcare for asymptomatic individuals at average risk for colorectal cancer. Following a negative Cologuard result, the [place] Cancer Society and U.S. Multi-Society Task Force screening guidelines recommend a Cologuard re-screening interval of 3 years. References: [place] [employer] Guideline for Colorectal Cancer Screening: https://www.cancer.org/cancer/ponui-pnuqin-dsnker/fhztbwmak-nbenvudgv-oearxig/ac s-rec ommendations.html.; Rigoberto CHUNG, Kirsty TSANG, Cristobal StoneK, Colorectal Cancer Screening: Recommendations for Physicians and Patients from the U.S. Multi-Society Task Force on Colorectal Cancer Screening , Am J Gastroenterology 2017; 112:3436-3793. TEST DESCRIPTION: Composite algorithmic analysis of stool DNA-biomarkers with hemoglobin immunoassay. Quantitative values of individual biomarkers are not [...] screened with both Cologuard and colonoscopy. (Alfonzo Chowdhury. et al, N Engl J Med 2014;370(14):3364-1464.) Cologuard may produce a false negative or false positive result (no colorectal cancer or precancerous polyp present at colonoscopy follow up). A negative Cologuard test result does not guarantee the absence of CRC or advanced adenoma (pre-cancer). The current Cologuard screening interval is every 3 years. ([place] [employer] Society and U.S. Multi-Society Task Force). Cologuard performance data in a 10,000 patient pivotal study using colonoscopy as the reference method can be accessed at the following location: www.[employer]/results. Additional description of the Cologuard test process, warnings and precautions can be found at www.Boticcard.com. Stool specimen (specimen) 12/10/2022 9:00 PM EDT 12/14/2022 7:40 PM EDT [facility] LAB MOLECULAR DIAGNOSTICS ORDERA BLES Final Result [facility] (CLIA #:[id number]) [place] [address] [address], * (ABNORMAL) LIPID PANEL, STANDARD (01/18/2022 11:33 AM EDT) Chol/HDLC Ratio 6.3(H) <5.0 (calc) [facility] Cholesterol, Total 144 <200 mg/dL [facility] HDL Cholesterol 23(L) > OR = 40 mg/dL [facility] LDL Cholesterol 88 mg/dL (calc) [facility] Comment: Reference range: <100 Desirable range <100 mg/dL for primary prevention; <70 mg/dL for patients with CHD or diabetic patients with > or = 2 CHD risk factors. LDL-C is now calculated using the Bzuz-Heaton calculation, which is a validated novel method providing better accuracy than the Friedewald equation in the estimation of LDL-C. Buzz SS et al. LAZARO. 2013;310(19): 4621-9919 (http://education.[employer]/faq/EEZ174) Non-HDL Cholesterol 121 <130 mg/dL (calc) [facility] Comment: For patients with diabetes plus 1 major ASCVD risk factor, treating to a non-HDL-C goal of <100 mg/dL (LDL-C of <70 mg/dL) is considered a therapeutic option. Triglycerides 254(H) <150 mg/dL [facility] Comment: If a non-fasting specimen was collected, consider repeat triglyceride testing on a fasting specimen if clinically indicated. Cyrus et al. J. of Clin. Lipidol. 2015;9:129-169. 01/18/2022 11:3 3 AM EDT us Demetra Beckman MD LAB BLOOD ORDERABLES Final R esult [facility] from Last 3 Months or Most Recently Relevant to Health Maintenance Insurance [employer] STAND ADULT Care Teams Bread Dumper Relationship Specialty Start Date End Date Yari Laughlin ANP [address] [place] [address] PCP - General Family Medicine 07/02/22 [place] FNP [address] [place] [address] Nurse Practitioner Family Medicine 03/18/23
--- OUTSIDE RECORDS SUMMARY | 2025-03-04 08:54 | XMS_ITS | Encounter Summary ---
Author Organization [employer] Address [address] [place] [address] [address], [place] [address] Care Team Providers Care Insurance Examining Clerk Name Role Phone Yari Laughlin Primary Care Provider [phone] [place] Unavailable Unavailable Reason for Visit * Reason Onset Date Comments Med Refill 01/20/2024 Encounter Details Date Type Department Care Team ([facility] st Contact Info) Description 01/20/2024 Telephone [facility] MEDICINE [address] [place] [address] Yari Laughlin ANP [address] [place] [address] Med Refill Social History Tobacco Use Types [...] tablet To be sent to: [facility]/pharmacy #[id number] [place] [address] documented in this encounter Plan of Treatment Upcoming Encounters Date Type Department Care Team (Late st Contact Info) Description 03/04/2025 1:15 PM EST Office Visit [facility] MED[facility]INE [address] [place] [address] Yari Laughlin ANP [address] [place] [address] documented as of this encounter Visit Diagnoses Not on filedocumented in this encounter Additional Health Concerns Assessment Noted Time PHQ-9 Depression Total Score: 6 08/26/19 24 9:13 AM EDT documented as of this encounter Care Teams Insurance Examining Clerk Relationship Specialty Start Date End Date Yari Laughlin ANP [address] [place] [address] PCP - General Family Medicine 07/02/22 [place] FNP [address] [place] [address] Nurse Practitioner Family Medicine 03/18/23 documented as of this encounter
--- OUTSIDE RECORDS SUMMARY | 2025-03-04 08:54 | XMS_ITS | Encounter Summary ---
Author Organization [employer] Address [address] [facility] [address]t [place] [address] Care Team Providers Care Coil Inspector Name Role Phone Qian Yari WHITTAKER Primary Care Provider [phone] [place] Unavailable Unavailable Encounter Details Date Type Department Care Team (Latest Contact Info) Description 03/03/2025 Travel Social History Tobacco Use Types Packs/Day Years [...] Description 03/04/2025 1:15 PM EST Office Visit [facility] MEDICINE [address] [place] [address] Yari Laughlin ANP [address] [place] [address] documented as of this encounter Visit Diagnoses Not on filedocumented in this encounter Additional Health Concerns Assessment Noted Time PHQ-9 Depression Total Score: 0 12/05/19 25 11:05 AM EDT documented as of this encounter Care Teams Coil Inspector Relationship Specialty Start Date End Date Yari Laughlin ANP [address] [place] [phone] PCP - General Family Medicine 07/02/22 [place] FNP [address] [place] [phone] Nurse Practitioner Family Medicine 03/18/23 documented as of this encounter
--- OUTSIDE RECORDS SUMMARY | 2025-03-04 08:55 | XMS_ITS | Encounter Summary ---
Author Organization [employer] Address [address] [facility] [address] [place] [address] Care Team Providers Care Cable Engineer Outside Plant Name Role Phone Yari Laughlin Primary Care Provider [phone] [place] Unavailable Unavailable Encounter Details Date Type Department Care Team ([facility] st Contact Info) Description 09/27/2023 Orders Only [facility] MEDICINE [address] [place] [address] Yari Laughlin ANP [address] [place] [address] Social History Tobacco Use Types Packs/Day Years [...] Description 03/04/2025 1:15 PM EST Office Visit [facility] MEDICINE [address] [place] [phone] Yari Laughlin ANP [address] [place] [address] documented as of this encounter Visit Diagnoses Not on filedocumented in this encounter Additional Health Concerns Assessment Noted Time PHQ-9 Depression Total Score: 6 08/26/19 24 9:13 AM EDT documented as of this encounter Care Teams Cable Engineer Outside Plant Relationship Specialty Start Date End Date Yari Laughlin ANP [address] [place] [phone] PCP - General Family Medicine 07/02/22 [place] FNP [address] [place] [phone] Nurse Practitioner Family Medicine 03/18/23 documented as of this encounter
--- OUTSIDE RECORDS SUMMARY | 2025-03-04 08:55 | XMS_ITS | Encounter Summary ---
Author Organization [employer] Address [address] [place] [address] [address] [place] [address] Care Team Providers Care Rn Progressive Care Unit Name Role Phone Qian Yari WHITTAKER Primary Care Provider [phone] [place] Unavailable Unavailable Reason for Visit * Reason Comments Med Change Request Encounter Details Date Type Department Care Team (Late st Contact Info) Description 08/26/2023 Refill [facility] [address] [place] [address] Alee Quezada FNP Social History Tobacco Use [...] AM EDT documented as of this encounter Functional Status * Over the past 2 weeks, how often have you been bothered by any of the following problems? Question Answer Date of Assessment Author Patient Health Questionnaire -2 Score 2 08/26/2023 9:13 AM EDT Tatiana Montelongo MA * How difficult have these problems made it for you to do your work, take care of things at home, or get along with other people? Answer Date of Assessment Author Somewhat difficult 08/26/2023 9:13 AM EDT Aida Nuno MA * Over the past 2 weeks, how often have you been bothered by any of the following problems? Question Answer Date of Assessment Author Little interest or pleasure in doing things Several days 08/26/2023 9:13 AM Aida Weiss MA Feeling down, depressed, or hopeless Several days 08/26/2023 9:13 AM KAIT Aida Montelongo MA Trouble falling or staying asleep, or sleeping too much Not at all 08/26/2023 9:13 AM KAIT Aida Montelongo MA Feeling tired or having little energy More than half the days 08/26/2023 9:13 AM KAIT Aida Montelongo MA Poor appetite or overeating Not at all 08/26/2023 9:13 AM KAIT Aida Montelongo MA Feeling bad about yourself - or that you are a failure or have let yourself or your family down Several days 08/26/2023 9:13 AM EDT Aida Montelongo MA Trouble concentrating on things, such as reading the newspaper or watching television Several days 08/26/2023 9:13 AM EDT Aida Montelongo MA Moving or speaking so slowly that other people could have noticed? Or the opposite - being so fidgety or restless that you have been moving around a lot more than usual. Not at all 08/26/2023 9:13 AM EDT Aida Montelongo MA Thoughts that you would be better off or hurting yourself in some way Not at all 08/26/2023 9:13 AM EDT Aida Montelongo MA Patient Health Questionnaire-9 Score 6 08/26/2023 9:13 AM EDT Aida Montelongo MA documented as of this encounter Miscellaneous Notes * Telephone Encounter - JYOTHI Alaniz - 08/28/2023 10:35 AM EDT Approving, but needs appt for additional refills. documented in this encounter Plan of Treatment Upcoming Encounters Date Type Department Care Team (Late st Contact Info) Description 03/04/2025 1:15 PM EST Office Visit [facility] [address] [place] [address] Yari Laughlin ANP [address] [place] [address] documented as of this encounter Visit Diagnoses Not on filedocumented in this encounter Additional Health Concerns Assessment Noted Time PHQ-9 Depression Total Score: 6 08/26/19 24 9:13 AM EDT documented as of this encounter Care Teams Rn Progressive Care Unit Relationship Specialty Start Date End Date Yari Laughlin ANP [address] [place] [id number] PCP - General Family Medicine 07/02/22 [place] FNP [address] [place] [id number] Nurse Practitioner Family Medicine 03/18/23 documented as of this encounter
[2025-03-04 12:06] LABS: Anion Gap 13 (12-20); Blood Urea Nitrogen 12 mg/dL (9-16); Calcium 9.1 mg/dL (8.4-10.2); Carbon Dioxide 26 mmol/L (22-29); Chloride 110 mmol/L (96-108); Cholesterol 137 mg/dL (<200); Estimated Glomerular Filt Rate > 60; HDL Cholesterol 23 mg/dL (>40); Potassium 3.8 mmol/L (3.3-5.1); Sodium 145 mmol/L (135-145); Triglycerides 193 mg/dL (<150)
[2025-03-04 12:39] LABS: Microalbum/Creatinine Ratio Ur 6.6 ug/mg cr (<30)
== END 2025-03-04 08:35 | disposition home or self-care (01) ==
LOC: HO.HHCL 08:34
PROVIDERS: PCP Nurse Practitioner Primary Care; Visit Provider Nurse Practitioner Primary Care
DX: E66.813 Obesity, class 3 (principal); I10 Essential (primary) hypertension; Z68.42 Body mass index [BMI] 45.0-49.9, adult
CPT/HCPCS: 36415; 80048; 80061; 82043; 82570